=== PATIENT | female | born 1945 ===

== ENCOUNTER 2017-02-21 16:33 | Emergency (ER) | payer MEDICARE ==
[2017-02-21 16:33] VITALS: BMI 25.0
[2017-02-21 16:58] VITALS: BP 137/76; PULSE 75; RESP 20; TEMP 98.9; O2SAT 97
== END 2017-02-21 17:43 | disposition left against medical advice (07) ==
LOC: C.ER 16:33
DX: R10.9 Unspecified abdominal pain (principal); Z02.9 Encounter for administrative examinations, unspecified

== ENCOUNTER 2018-07-08 06:20 | Observation (INO) | payer MEDICARE ==
[2018-07-08 06:21] VITALS: BMI 20.5
[2018-07-08] MEDS ORDERED: Albuterol-Ipratrop 3 mg / 0.5 (3 ml) UD ONE (06:26)
[2018-07-08] MEDS ORDERED: Albuterol 0.083% Inhal Sol (2.5 mg/3 mL) UD IH STA ×3 (07:16→11:28)
[2018-07-08 07:29] LABS: BASO # 0.1 K/uL (0.0-0.2); BASO % 0.7 % (0.0-2.0); EOS # 0.2 K/uL (0.0-0.7); EOS % 2.5 % (0.0-4.0); HEMOGLOBIN 13.3 g/dL (11.0-16.0); LYMPH # 1.8 K/uL (1.0-4.3); LYMPH % 24.2 % (20.0-40.0); MEAN CELL VOLUME 86.7 fL (81.0-99.0); MEAN CORPUSCULAR HEMOGLOBIN 29.6 pg (27.0-31.0); MEAN CORPUSCULAR HGB CONC 34.1 g/dL (33.0-37.0); MEAN PLATELET VOLUME 7.7 fL (7.2-11.7); MONO # 0.9 K/uL (0.0-0.8); MONO % 11.5 % (0.0-10.0); NEUT # 4.6 K/uL (1.8-7.0); NEUT % 61.1 % (50.0-75.0); NRBC % 0.1 % (0.0-2.0); RBC 4.48 Mil/uL (3.80-5.20); RED CELL DISTRIBUTION WIDTH 14.3 % (11.5-14.5); WHITE BLOOD COUNT 7.5 K/uL (4.8-10.8)
[2018-07-08] MEDS ORDERED: Albuterol 0.083% Inhal Sol (2.5 mg/3 mL) UD ONE ×3 (07:37→12:09)
[2018-07-08 07:50] LABS: ALB/GLOB RATIO 1.1 (1.0-2.1); ALBUMIN 3.8 g/dL (3.5-5.0); ALT/SGPT 28 U/L (9-52); AST/SGOT 27 U/L (14-36); BLOOD UREA NITROGEN 22 mg/dL (7-17); CALCIUM 9.3 mg/dl (8.6-10.4); GFR NON-AFRICAN AMERICAN > 60
[2018-07-08 08:03] LABS: B-TYPE NATRIURETIC PEPTIDE 202 pg/mL (0-900); CK-MB 0.78 ng/mL (0.0-3.38)
--- NOTE | 2018-07-08 09:05 | C.PDOC ---
History Of Present Illness 73-year-old female, presents to the emergency department with complaints of a non-productive cough x4 days, that is associated with shortness of breath, wheezing and pleuritic pain. Patient denies fever, nausea/vomiting, diarrhea or abdominal pain. Time Seen by Provider: 07/08/18 07:07 Chief Complaint (Nursing): Cough, Cold, Congestion History Per: Patient History/Exam Limitations: no limitations Onset/Duration Of Symptoms: Days (4) Current Symptoms Are (Timing): Still Present Past Medical History Reviewed: Historical Data, Nursing Documentation, Vital Signs Vital Signs: Last Vital Signs Temp 98.5 F 07/08/18 06:30 Pulse 68 07/08/18 07:31 Resp 18 07/08/18 06:30 BP 125/56 L 07/08/18 07:31 Pulse Ox 20 L 07/08/18 07:31 - Medical History PMH: Anxiety, Arthritis, Bronchitis, COPD, Depression, Emphysema, Gastritis, HT N, Hypercholesterolemia, Osteoporosis Surgical History: Endoscopy - [facility] Procedures CATARAC PHACOEMULS/ASPIR (02/13/01) CORONAR ARTERIOGR-2 CATH (02/19/13) ESOPHAGOGASTRODUODENOSCOPY [EGD] W/CLOSED BIOPSY (07/19/14) INSERT LENS AT CATAR EXT (02/13/01) LEFT HEART CARDIAC CATH (02/19/13) LT HEART ANGIOCARDIOGRAM (02/19/13) NEBULIZER THERAPY (02/19/13) Family History: States: No Known Family Hx - Social History Hx Tobacco Use: No Hx Alcohol Use: No Hx Substance Use: No - Immunization History Hx Tetanus Toxoid Vaccination: No Hx Influenza Vaccination: No (not UTD) Hx Pneumococcal Vaccination: No (not UTD) Review Of Systems Constitutional: Negative for: Fever Cardiovascular: Negative for: Chest Pain, Palpitations, Edema Respiratory: Positive for: Cough, Shortness of Breath, Pleuritic Pain, Wheezing. Negative for: Sputum Gastrointestinal: Negative for: Nausea, Vomiting Musculoskeletal: Negative for: Back Pain Physical Exam - Physical Exam Appears: Non-toxic, No Acute Distress Skin: Warm, Dry, No Rash Head: Atraumatic Eye(s): bilateral: Normal Inspection Nose: Normal Oral Mucosa: Moist Lips: Normal Appearing Neck: Normal ROM Chest: Symmetrical Cardiovascular: Rhythm Regular, No Murmur Respiratory: Decreased Breath Sounds, Wheezing (mild expiratory) Gastrointestinal/Abdominal: Soft, No Tenderness Extremity: Normal ROM, No Pedal Edema Neurological/Psych: Oriented x3, Normal Speech ED Course And Treatment - Laboratory Results Result Diagrams: 07/08/18 07:25 07/08/18 07:25 ECG Rhythm: Sinus Rhythm ECG Interpretation: No Acute Changes Rate From EC O2 Sat by Pulse Oximetry: 20 Pulse Ox Interpretation: Normal (RA) Progress Note: Bloodwork, EKG, Chest X-Ray ordered and reviewed. Pt treated with Duoneb and Solumedrol Disposition - Disposition Referrals: Sanjiv David MD [Primary Care Provider] - - Scribe Statement The provider has reviewed the documentation as recorded by the Scribe (Vannesa Marion) Provider Attestation: All medical record entries made by the Scribe were at my direction and personally dictated by me. I have reviewed the chart and agree that the record accurately reflects my personal performance of the history, physical exam, medical decision making, and the department course for this patient. I have also personally directed, reviewed, and agree with the discharge instructions and disposition.
--- NOTE | 2018-07-08 11:09 | RAD ---
Date of service: 07/08/2018 PROCEDURE: CHEST RADIOGRAPH, 1 VIEW HISTORY: cough, sob COMPARISON: 06/09/2016 chest x-ray. CT chest report 02/19/2016 FINDINGS: LUNGS: Current lung volumes much less than before. Bibasilar atelectatic like changes present. Slightly greater opacity medial right lung base Nonspecific pulmonary nodules, 1 to 3 mm, mid and left upper lung zone-granulomas 1 consideration. That in the mid lung zone is not appreciated on prior studies. Summation of soft tissues, vessel on end, and/or intrinsic pathology related to a posterior left rib left 7th rib for example are some considerations No dense consolidation. PLEURA: No pneumothorax or pleural fluid seen. CARDIOVASCULAR: Top-normal heart size. Tortuous thoracic aorta. Pulmonary vasculature also appears slightly increased-in part likely secondary to crowding of low lung volume status There is atherosclerotic vascular aorta faint calcification suggested. OSSEOUS STRUCTURES: Bilateral shoulder arthrosis. VISUALIZED UPPER ABDOMEN: Normal. OTHER FINDINGS: None. IMPRESSION: Interval decreased lung volume-likely contributing to the relative prominence of the bronchovascular markings. Concomitant mild pulmonary venous congestion also a consideration. No dense consolidation. Bilateral medial mild atelectatic changes. Nonspecific mostly sub cm nodular opacities granulomatous change at least in part for those in the upper lung zones inferred. Additional pulmonary nodules also needed be considered. Note of a 4 mm nodule in the right lung base per the prior CT chest studies noted this is difficult to identify on this exam. There is a larger ill-defined nodular opacity in the medial right lung zone of unclear significance. Consider follow-up noncontrast CT chest imaging Other findings as above. Comments: Study marked for PA review .
--- NOTE | 2018-07-08 13:06 | CT ---
Date of service: 07/08/2018 CT chest without IV contrast Indication: DYSPNEA, LUNG NODULES Technique: Contiguous axial images were obtained through the chest without intravenous contrast enhancement. Sagittal and coronal reconstructions were generated and reviewed. This CT exam was performed using 1 or more of the following dose reduction techniques: Automated exposure control, adjustment of the MAA and/or kV according to patient size, and/or use of iterative reconstruction technique. Radiation dose (DLP): 202.04 MGy-cm. Comparison: Chest x-ray performed 07/08/28; CT of the chest with IV contrast performed 02/19/16 Findings: Visualized portions of the inferior thyroid gland appear unremarkable. The unenhanced mediastinal and hilar vascular structures appear grossly unremarkable. The heart appears within normal limits of size. Coronary artery calcifications. Atherosclerotic calcifications of the aorta present. Mild bibasilar atelectasis. No focal consolidation. No pleural effusion. No pneumothorax. No suspicious pulmonary nodules measuring greater than 5 mm. Small hiatal hernia/distal esophageal wall thickening. Limited visualization of the noncontrast upper abdomen appears grossly unremarkable. Scoliosis. Mild degenerative changes of the spine. Impression: Mild bibasilar atelectasis. Coronary artery calcifications. Small hiatal hernia/distal esophageal wall thickening.
[2018-07-08] MEDS ORDERED: guaiFENesin 200 mg/10 ml Syrup UD PO PRN (16:20)
[2018-07-08 16:26] VITALS: RESP 20
[2018-07-08] MEDS: Azithromycin 500 MG in Sodium Chloride 0.9% 250 ML IVPB SCH (17:17)
[2018-07-08] MEDS ORDERED: Dorzolamide 2% Opht Sol 10ml OD SCH (18:00)
[2018-07-08] MEDS ORDERED: Brimonidine 0.2% Opth Sol (5ml) OD SCH (18:00)
[2018-07-08] MEDS ORDERED: Latanoprost 2.5 ml Opht Soln OD SCH (18:00)
[2018-07-08] MEDS: Dorzolamide 2% Opht Sol 10ml OD SCH (19:17)
[2018-07-08] MEDS: Brimonidine 0.2% Opth Sol (5ml) OD SCH (19:18)
[2018-07-08] MEDS: Albuterol-Ipratrop 3 mg / 0.5 (3 ml) UD INH SCH (19:22)
[2018-07-08] MEDS: MethylPREDNISolone 40 mg Vial IVP SCH (21:47)
[2018-07-08] MEDS: Latanoprost 2.5 ml Opht Soln OD SCH (21:47)
--- NOTE | 2018-07-08 22:56 | CP.PCM.HP ---
Past Patient History - Infectious Disease Hx of Infectious Diseases: None - Tetanus Immunizations Tetanus Immunization: Unknown - Past Medical History & Family History Past Medical History?: Yes - Past Social History Smoking Status: Former Smoker - CARDIAC Hx Hypercholesterolemia: Yes Hx Hypertension: Yes - PULMONARY Hx Bronchitis: Yes Hx Chronic Obstructive Pulmonary Disease (COPD): Yes Hx Emphysema: Yes - NEUROLOGICAL Hx Neurological Disorder: No - HEENT Hx HEENT Problems: Yes Hx Glaucoma: Yes - RENAL Hx Chronic Kidney Disease: No - ENDOCRINE/METABOLIC Hx Endocrine Disorders: No - HEMATOLOGICAL/ONCOLOGICAL Hx Human Immunodeficiency Virus (HIV): No - INTEGUMENTARY Hx Dermatological Problems: No - MUSCULOSKELETAL/RHEUMATOLOGICAL Hx Arthritis: Yes Hx Osteoporosis: Yes - GASTROINTESTINAL Hx Gastritis: Yes - GENITOURINARY/GYNECOLOGICAL Hx Genitourinary Disorders: No - PSYCHIATRIC Hx Anxiety: Yes Hx Depression: Yes Hx Substance Use: No - SURGICAL HISTORY Hx Hysterectomy: Yes Other/Comment: Hernia surgery;glaucoma surgery L eye - ANESTHESIA Hx Anesthesia: Yes Hx Anesthesia Reactions: No Hx Malignant Hyperthermia: No Meds Allergies/Adverse Reactions: Allergies Allergy/AdvReac Type Severity Reaction Status Date / Time Penicillins Allergy Intermediate RASH Verified 07/08/18 06:26 moxifloxacin HCl AdvReac Intermediate RASH Verified 07/08/18 06:26 [From Avelox] Results - Vital Signs Recent Vital Signs: Last Vital Signs Temp 97.8 F 07/08/18 15:50 Pulse 68 07/08/18 19:23 Resp 20 07/08/18 15:50 BP 116/68 07/08/18 15:50 Pulse Ox 96 07/08/18 15:50 - Labs Result Diagrams: 07/08/18 07:25 07/08/18 07:25 Labs: Laboratory Results - last 24 hr 07/08/18 07/08/18 07/08/18 07:25 07:25 16:39 WBC 7.5 RBC 4.48 Hgb 13.3 Hct 38.8 MCV 86.7 MCH 29.6 MCHC 34.1 RDW 14.3 Plt Count 216 MPV 7.7 Neut % (Auto) 61.1 Lymph % (Auto) 24.2 [place] % (Auto) 11.5 H Eos % (Auto) 2.5 Baso % (Auto) 0.7 Neut # (Auto) 4.6 Lymph # (Auto) 1.8 [place] # (Auto) 0.9 H Eos # (Auto) 0.2 Baso # (Auto) 0.1 Sodium 141 Potassium 4.6 Chloride 102 Carbon Dioxide 29 Anion Gap 15 BUN 22 H Creatinine 0.8 Est GFR ( Amer) > 60 Est GFR (Non-Af Amer) > 60 POC Glucose (mg/dL) 125 H Random Glucose 98 Calcium 9.3 Total Bilirubin 0.5 AST 27 ALT 28 Alkaline Phosphatase 102 Total Creatine Kinase 73 CK-MB (Mass) 0.78 Troponin I 0.0140 NT-Pro-B Natriuret Pep 202 Total Protein 7.2 Albumin 3.8 Globulin 3.4 Albumin/Globulin Ratio 1.1
[2018-07-09] MEDS: Albuterol-Ipratrop 3 mg / 0.5 (3 ml) UD INH SCH ×4 (01:29→20:15)
[2018-07-09] MEDS: MethylPREDNISolone 40 mg Vial IVP SCH ×3 (05:44→21:35)
[2018-07-09] MEDS: guaiFENesin 200 mg/10 ml Syrup UD PO SCH ×5 (07:33→21:34)
--- NOTE | 2018-07-09 08:27 | HP ---
DATE OF SERVICE: 07/08/2018 CHIEF COMPLAINT: Shortness of breath and cough for the last four days. HISTORY OF PRESENT ILLNESS: This is a 73-year-old female with history of bronchial asthma. She came in because of cough, congestion, shortness of breath, cold, and wheezing for four days. Along with the wheezing, she is having chest congestion, chest pain upon coughing, generalized weakness, tiredness, anorexia, malaise, and fatigue. She has white sputum production. She has chills. She denies any rigors. She denies any history of hemoptysis. She denies any nausea or vomiting. She denies any history of polyuria, polydipsia, and polyphagia. She denies any history of hematuria or pyuria. She has nasal congestion. She denies any sneezing. ALLERGIES: TO PENICILLIN. PAST MEDICAL HISTORY: Bronchial asthma and allergic rhinitis. SOCIAL HISTORY: Nonsmoker, non-EtOH user. CURRENT MEDICATIONS: At home, she is on Timoptic eyedrops, Alphagan eyedrops, Ventolin HFA, and Travatan. FAMILY HISTORY: Noncontributory. PHYSICAL EXAMINATION: GENERAL: An elderly female in [id number] respiratory distress. VITAL SIGNS: Blood pressure 116/68, pulse 67, respiratory rate 20, and temperature 97.8. SKIN: Senile turgor. No bruises. No purpura. No petechia. No ecchymosis. HEENT: Atraumatic, normocephalic. Negative pallor. Negative jaundice. Extraocular movements are intact. NECK: Supple. Using accessory muscles of respiration. No JVD. No lymph node. No thyromegaly. No carotid bruits. CHEST WALL: Bilateral symmetrical expansion. LUNGS: Bilaterally decreased air entry. Positive rhonchi. CARDIOVASCULAR SYSTEM: PMI not localized. S1 and S2 regular. No heave, no thrills. ABDOMEN: Soft and nontender. Bowel sounds are positive. RECTAL: Negative. GENITALIA: Normal. EXTREMITIES: No clubbing, cyanosis, or edema. CENTRAL NERVOUS SYSTEM: Awake, alert and oriented x3 at the time of the assessment. ASSESSMENT: 1. Acute exacerbation of bronchial asthma. 2. Urinary tract infection. 3. Glaucoma. PLAN: Medical management, monitor the patient. Michael Fontaine MD
[2018-07-09] MEDS: Brimonidine 0.2% Opth Sol (5ml) OD SCH ×2 (09:49→17:30)
[2018-07-09] MEDS: Dorzolamide 2% Opht Sol 10ml OD SCH ×2 (09:52→17:31)
[2018-07-09] MEDS: Azithromycin 500 MG in Sodium Chloride 0.9% 250 ML IVPB SCH (09:58)
[2018-07-09] MEDS ORDERED: Influenza Vaccine 60 MCG/0.5 ML SYR (3 yr & up) IM ONE (10:00)
[2018-07-09] MEDS ORDERED: Pneumococcal 23-Valent Vaccine IM ONE (10:00)
[2018-07-09] MEDS: Enoxaparin 40 mg Syringe SC SCH (10:34)
--- NOTE | 2018-07-09 16:13 | CP.PCM.CON ---
History of Present Illness - History of Present Illness History of Present Illness: Patient is a 73 y/o female with PMHx of asthma and emphysema, who presented to the ED on 07/08/18 with complaint of non-productive cough x2 days, shortness of breath, wheezing, and pleuritic chest pain. She states the chest p ain is more of a tightness/congestion, which worsens with coughing. Patient states she has experienced these symptoms before, for which she has been followed by a enterprise security architect in the past. She states using her nebulizer machine up to 4x/day at home makes her symptoms better and exerting herself make it worse. Patient has used Spiriva before, but stopped using it awhile ago due to personal issues. Currently, pt. complains of non-productive cough, chest tightness, shortness of breath, and weakness. Denies fever, hemoptysis, n/v. Of note, patient's spouse of 45 years this week, and his burial is this Saturday (07/11/18); she seems very distressed/depressed. PMHx: asthma (since young), emphysema, gastritis, hypercholesteremia PSHx: glaucoma, hysterectomy FHx: NC Allergies: PCN (hives) Meds: nebullizer machine (4x/day at home), eye drops, Spiriva in the past Social: denies smoking, alcohol, and drug use; lives alone (used to live with , who recently passed); unemployed CXR (07/08): -Interval decreased lung volume-likely contributing to the relative prominence o f the bronchovascular markings. Concomitant mild pulmonary venous congestion also a consideration. -No dense consolidation; bilateral medial mild atelectatic changes -Nonspecific mostly sub cm nodular opacities granulomatous change at leas tin part for those in the upper lung zones inferred; additional pulmonary nodules also needed be considered; note of a 4mm nodule in right lung base per the prior CT chest studies noted this is difficult to identify on this exam; there is a larger ill-defined nodular opacity in the medial right lung zone of unclear significance; consider follow-up noncontrast CT chest imaging. CT chest w/o contrast (07/08): -Mild bibasilar atelectasis; no focal consolidation; no pleural effusion; no pneumothorax; no suspicious pulmonary nodules measuring greater than 5mm. Review of Systems - Review of Systems All systems: reviewed and no additional remarkable complaints except (shortness of breath) Past Patient History - Infectious Disease Hx of Infectious Diseases: None - Tetanus Immunizations Tetanus Immunization: Unknown - Past Medical History & Family History Past Medical History?: Yes - Past Social History Smoking Status: Former Smoker - CARDIAC Hx Hypercholesterolemia: Yes Hx Hypertension: Yes - PULMONARY Hx Bronchitis: Yes Hx Chronic Obstructive Pulmonary Disease (COPD): Yes Hx Emphysema: Yes - NEUROLOGICAL Hx Neurological Disorder: No - HEENT Hx HEENT Problems: Yes Hx Glaucoma: Yes - RENAL Hx Chronic Kidney Disease: No - ENDOCRINE/METABOLIC Hx Endocrine Disorders: No - HEMATOLOGICAL/ONCOLOGICAL Hx Human Immunodeficiency Virus (HIV): No - INTEGUMENTARY Hx Dermatological Problems: No - MUSCULOSKELETAL/RHEUMATOLOGICAL Hx Arthritis: Yes Hx Osteoporosis: Yes - GASTROINTESTINAL Hx Gastritis: Yes - GENITOURINARY/GYNECOLOGICAL Hx Genitourinary Disorders: No - PSYCHIATRIC Hx Anxiety: Yes Hx Depression: Yes Hx Substance Use: No - SURGICAL HISTORY Hx Hysterectomy: Yes Other/Comment: Hernia surgery;glaucoma surgery L eye - ANESTHESIA Hx Anesthesia: Yes Hx Anesthesia Reactions: No Hx Malignant Hyperthermia: No Meds Allergies/Adverse Reactions: Allergies Allergy/AdvReac Type Severity Reaction Status Date / Time Penicillins Allergy Intermediate RASH Verified 07/08/18 06:26 moxifloxacin HCl AdvReac Intermediate RASH Verified 07/08/18 06:26 [From Avelox] - Medications Medications: Current Medications Acetaminophen (Tylenol 325mg Tab) 650 mg PO Q6 PRN PRN Reason: Headache Albuterol/Ipratropium (Duoneb 3 Mg/0.5 Mg (3 Ml) Ud) 3 ml INH RQ6 [facility] Last Admin: 07/09/18 13:25 Dose: Not Given Brimonidine Tartrate (Alphagan 0.2% Opht) 0.05 ml OD BID [facility] Last Admin: 07/09/18 09:49 Dose: 1 drop Dorzolamide HCl (Trusopt) 0.05 ml OD BID [facility] Last Admin: 07/09/18 09:52 Dose: 1 drop Enoxaparin Sodium (Lovenox) 40 mg SC DAILY [facility] Last Admin: 07/09/18 10:34 Dose: 40 mg Guaifenesin (Robitussin) 200 mg PO Q4H [facility] Last Admin: 07/09/18 13:46 Dose: 200 mg Azithromycin 500 mg/ Sodium (Chloride) 250 mls @ 250 mls/hr IVPB DAILY [facility]; Protocol Last Admin: 07/09/18 09:58 Dose: 250 mls/hr Latanoprost (Xalatan Opht) 0.05 ml OD DAILY@2200 [facility] Last Admin: 07/08/18 21:47 Dose: 0.05 ml Methylprednisolone (Solu-Medrol) 40 mg IVP Q12 [facility] Pantoprazole Sodium (Protonix Inj) 40 mg IVP DAILY [facility] Last Admin: 07/09/18 09:52 Dose: 40 mg Physical Exam - Head Exam Head Exam: ATRAUMATIC, NORMOCEPHALIC - ENT Exam ENT Exam: Mucous Membranes Moist - Neck Exam Neck exam: Positive for: Normal Inspection - Respiratory Exam Respiratory Exam: Decreased Breath Sounds - Cardiovascular Exam Cardiovascular Exam: REGULAR RHYTHM - GI/Abdominal Exam GI & Abdominal Exam: Normal Bowel Sounds - Extremities Exam Extremities exam: Positive for: normal inspection Results - Vital Signs Recent Vital Signs: Last Vital Signs Temp 98.1 F 07/09/18 08:00 Pulse 68 07/09/18 15:50 Resp 20 07/09/18 08:00 BP 108/59 L 07/09/18 08:00 Pulse Ox 96 07/09/18 14:50 - Labs Result Diagrams: 07/08/18 07:25 07/08/18 07:25 Labs: Laboratory Results - last 24 hr 07/08/18 16:39 POC Glucose (mg/dL) 125 H Assessment & Plan (1) COPD exacerbation Status: Acute Comment: continue steroids. Nebulizer treatment. IV antibiotics. Antidepressant
--- NOTE | 2018-07-09 19:49 | CARD ---
APPROVED REPORT Date of service: 07/08/2018 EKG Measurement Heart [id number] <Conclusion> Normal sinus rhythm Possible Left atrial enlargement Borderline ECG
[2018-07-09] MEDS: Latanoprost 2.5 ml Opht Soln OD SCH (21:34)
--- NOTE | 2018-07-09 21:47 | CP.PCM.PN ---
Subjective - Subjective Subjective: dictated Objective - Vital Signs/Intake and Output Vital Signs (last 24 hours): Temp Pulse Resp BP Pulse Ox 98.1 F 68 20 111/66 95 07/09/18 15:00 07/09/18 15:50 07/09/18 15:00 07/09/18 15:00 07/09/18 19:45 - Medications Medications: Current Medications Acetaminophen (Tylenol 325mg Tab) 650 mg PO Q6 PRN PRN Reason: Headache Albuterol/Ipratropium (Duoneb 3 Mg/0.5 Mg (3 Ml) Ud) 3 ml INH RQ6 [facility] Last Admin: 07/09/18 20:15 Dose: 3 ml Brimonidine Tartrate (Alphagan 0.2% Opht) 0.05 ml OD BID [facility] Last Admin: 07/09/18 17:30 Dose: 1 drop Dorzolamide HCl (Trusopt) 0.05 ml OD BID [facility] Last Admin: 07/09/18 17:31 Dose: 1 drop Enoxaparin Sodium (Lovenox) 40 mg SC DAILY [facility] Last Admin: 07/09/18 10:34 Dose: 40 mg Guaifenesin (Robitussin) 200 mg PO Q4H [facility] Last Admin: 07/09/18 21:34 Dose: 200 mg Azithromycin 500 mg/ Sodium (Chloride) 250 mls @ 250 mls/hr IVPB DAILY [facility]; Protocol Last Admin: 07/09/18 09:58 Dose: 250 mls/hr Latanoprost (Xalatan Opht) 0.05 ml OD DAILY@2200 [facility] Last Admin: 07/09/18 21:34 Dose: 0.05 ml Methylprednisolone (Solu-Medrol) 40 mg IVP Q12 [facility] Last Admin: 07/09/18 21:35 Dose: 40 mg Pantoprazole Sodium (Protonix Inj) 40 mg IVP DAILY [facility] Last Admin: 07/09/18 09:52 Dose: 40 mg - Labs Labs: 07/08/18 07:25 07/08/18 07:25
[2018-07-10 01:21] VITALS: PULSE 74
[2018-07-10] MEDS: Albuterol-Ipratrop 3 mg / 0.5 (3 ml) UD INH SCH ×2 (01:48→08:04)
[2018-07-10] MEDS: guaiFENesin 200 mg/10 ml Syrup UD PO SCH ×3 (02:40→09:50)
[2018-07-10 07:17] LABS: ALB/GLOB RATIO 1.1 (1.0-2.1); ALBUMIN 3.7 g/dL (3.5-5.0); ALT/SGPT 30 U/L (9-52); AST/SGOT 24 U/L (14-36); BLOOD UREA NITROGEN 25 mg/dL (7-17); GFR NON-AFRICAN AMERICAN > 60
[2018-07-10 07:19] LABS: BASO # 0.1 K/uL (0.0-0.2); BASO % 0.4 % (0.0-2.0); HEMOGLOBIN 13.1 g/dL (11.0-16.0); LYMPH # 1.6 K/uL (1.0-4.3); LYMPH % 8.4 % (20.0-40.0); MEAN CELL VOLUME 86.4 fL (81.0-99.0); MEAN CORPUSCULAR HEMOGLOBIN 29.8 pg (27.0-31.0); MEAN CORPUSCULAR HGB CONC 34.4 g/dL (33.0-37.0); MEAN PLATELET VOLUME 8.8 fL (7.2-11.7); MONO # 0.8 K/uL (0.0-0.8); NEUT # 16.6 K/uL (1.8-7.0); NEUT % 87.2 % (50.0-75.0); PLATELET COUNT 259 K/uL (130-400); RBC 4.42 Mil/uL (3.80-5.20); RED CELL DISTRIBUTION WIDTH 14.2 % (11.5-14.5); WHITE BLOOD COUNT 19.1 K/uL (4.8-10.8)
[2018-07-10 08:35] VITALS: BP 117/63; TEMP 97.4; O2SAT 96
--- NOTE | 2018-07-10 08:46 | PN ---
DATE: 07/09/2018 SUBJECTIVE: Rosalva Guerrero is less short of breath, less cough, less wheezing. She is afebrile. No nausea or vomiting. She is coughing. She is wheezing. Overall, she feels better. PHYSICAL EXAMINATION: VITAL SIGNS: Blood pressure 111/66, pulse 68, respiratory rate 20, temperature 98.1. LUNGS: Decreased air entry. Positive rhonchi. CARDIOVASCULAR SYSTEM: S1 and S2, regular. ABDOMEN: Soft. Nontender. Bowel sounds are positive. ASSESSMENT: 1. Exacerbation of bronchial asthma. 2. Allergic rhinitis. 3. Dehydration. PLAN: Continue current medications, steroids. Monitor the patient. Michael Fontaine MD
[2018-07-10 09:02] LABS: BANDS 1 % (0-2); LYMPHOCYTE 7 % (20-40); MONOCYTE 2 % (0-10); NEUTROPHIL 90 % (50-75); PLATELET ESTIMATE NORMAL (NORMAL); TOTAL CELLS COUNTED 100
[2018-07-10] MEDS: Brimonidine 0.2% Opth Sol (5ml) OD SCH (09:47)
[2018-07-10] MEDS: Enoxaparin 40 mg Syringe SC SCH (09:49)
[2018-07-10] MEDS: Dorzolamide 2% Opht Sol 10ml OD SCH (09:51)
[2018-07-10] MEDS: Azithromycin 500 MG in Sodium Chloride 0.9% 250 ML IVPB SCH ×2 (09:52→10:14)
[2018-07-10] MEDS: MethylPREDNISolone 40 mg Vial IVP SCH (10:13)
--- NOTE | 2018-07-10 10:34 | CP.PCM.PN ---
Subjective - Date & Time of Evaluation Date of Evaluation: 07/10/18 Time of Evaluation: 10:25 - Subjective Subjective: Patient seen today, sob and cough improved,denies any chest pain , palpitations, dizziness a febrile vss and labs - reviewed Objective - Vital Signs/Intake and Output Vital Signs (last 24 hours): Temp Pulse Resp BP Pulse Ox 97.4 F L 74 20 117/63 96 07/10/18 07:30 07/10/18 07:30 07/10/18 07:30 07/10/18 07:30 07/10/18 08:00 Intake and Output: 07/10/18 07/10/18 06:59 18:59 Intake Total 400 Balance 400 - Medications Medications: Current Medications Acetaminophen (Tylenol 325mg Tab) 650 mg PO Q6 PRN PRN Reason: Headache Albuterol/Ipratropium (Duoneb 3 Mg/0.5 Mg (3 Ml) Ud) 3 ml INH RQ6 [facility] Last Admin: 07/10/18 08:04 Dose: 3 ml Brimonidine Tartrate (Alphagan 0.2% Opht) 0.05 ml OD BID [facility] Last Admin: 07/10/18 09:47 Dose: 1 drop Dorzolamide HCl (Trusopt) 0.05 ml OD BID [facility] Last Admin: 07/10/18 09:51 Dose: 1 drop Enoxaparin Sodium (Lovenox) 40 mg SC DAILY [facility] Last Admin: 07/10/18 09:49 Dose: 40 mg Guaifenesin (Robitussin) 200 mg PO Q4H [facility] Last Admin: 07/10/18 09:50 Dose: 200 mg Azithromycin 500 mg/ Sodium (Chloride) 250 mls @ 250 mls/hr IVPB DAILY [facility]; Protocol Last Admin: 07/10/18 10:14 Dose: Not Given Latanoprost (Xalatan Opht) 0.05 ml OD DAILY@2200 [facility] Last Admin: 07/09/18 21:34 Dose: 0.05 ml Methylprednisolone (Solu-Medrol) 40 mg IVP Q12 [facility] Last Admin: 07/10/18 10:13 Dose: Not Given Pantoprazole Sodium (Protonix Inj) 40 mg IVP DAILY [facility] Last Admin: 07/10/18 09:48 Dose: 40 mg - Labs Labs: 07/10/18 06:49 07/10/18 06:49 - Constitutional Appears: Well, Non-toxic, No Acute Distress - Respiratory Exam Respiratory Exam: Rhonchi, NORMAL BREATHING PATTERN - Cardiovascular Exam Cardiovascular Exam: REGULAR RHYTHM, +S1, +S2 Assessment and Plan - Assessment and Plan (Free Text) Assessment: A/P 73-year-old female, with pmhx of asthma presented to ED with non-productive cough x4 days, associated with shortness of breath, and admitted with exc,COPD patient clinically improved with steroids D/w Dr. Fontaine, cleared for discharge home today and f/u [facility] Dr. Feliz office in 1 week Discharge plan discussed with patient patient instructed to returns to ED if symptoms returns or worsening of symptoms
--- NOTE | 2018-07-10 17:18 | CP.PCM.PN ---
Subjective - Date & Time of Evaluation Date of Evaluation: 07/10/18 Time of Evaluation: 09:45 - Subjective Subjective: Patient was seen and examined at bedside, sitting comfortably. Afebrile and in no acute distress. Patient states SOB improving with nebulizer treatment and cough improving with Robitussin. Denies chest pain. She is being discharged today with prescriptions of her medications. Objective - Vital Signs/Intake and Output Vital Signs (last 24 hours): Temp Pulse Resp BP Pulse Ox 97.4 F L 74 20 117/63 96 07/10/18 07:30 07/10/18 07:30 07/10/18 07:30 07/10/18 07:30 07/10/18 08:00 Intake and Output: 07/10/18 07/10/18 06:59 18:59 Intake Total 400 Balance 400 - Labs Labs: 07/10/18 06:49 07/10/18 06:49 Assessment and Plan (1) COPD exacerbation Status: Acute
--- NOTE | 2018-07-10 21:59 | CP.PCM.DIS ---
Provider - Provider Date of Admission: 07/08/18 11:30 Attending physician: Michael Fontaine MD Hospital Course - Lab Results Lab Results: Most Recent Lab Values WBC 19.1 K/uL (4.8-10.8) H D 07/10/18 06:49 RBC 4.42 Mil/uL (3.80-5.20) 07/10/18 06:49 Hgb 13.1 g/dL (11.0-16.0) 07/10/18 06:49 Hct 38.2 % (34.0-47.0) 07/10/18 06:49 MCV 86.4 fL (81.0-99.0) 07/10/18 06:49 MCH 29.8 pg (27.0-31.0) 07/10/18 06:49 MCHC 34.4 g/dL (33.0-37.0) 07/10/18 06:49 RDW 14.2 % (11.5-14.5) 07/10/18 06:49 Plt Count 259 K/uL (130-400) 07/10/18 06:49 MPV 8.8 fL (7.2-11.7) 07/10/18 06:49 Neut % (Auto) 87.2 % (50.0-75.0) H 07/10/18 06:49 Lymph % (Auto) 8.4 % (20.0-40.0) L 07/10/18 06:49 [place] % (Auto) 4.0 % (0.0-10.0) 07/10/18 06:49 Eos % (Auto) 0.0 % (0.0-4.0) 07/10/18 06:49 Baso % (Auto) 0.4 % (0.0-2.0) 07/10/18 06:49 Neut # (Auto) 16.6 K/uL (1.8-7.0) H 07/10/18 06:49 Lymph # (Auto) 1.6 K/uL (1.0-4.3) 07/10/18 06:49 [place] # (Auto) 0.8 K/uL (0.0-0.8) 07/10/18 06:49 Eos # (Auto) 0.0 K/uL (0.0-0.7) 07/10/18 06:49 Baso # (Auto) 0.1 K/uL (0.0-0.2) 07/10/18 06:49 Neutrophils % (Manual) 90 % (50-75) H 07/10/18 06:49 Band Neutrophils % 1 % (0-2) 07/10/18 06:49 Lymphocytes % (Manual) 7 % (20-40) L 07/10/18 06:49 Monocytes % (Manual) 2 % (0-10) 07/10/18 06:49 Platelet Estimate Normal (NORMAL) 07/10/18 06:49 Sodium 143 mmol/L (132-148) 07/10/18 06:49 Potassium 4.2 mmol/L (3.6-5.2) 07/10/18 06:49 Chloride 106 mmol/L (98-107) 07/10/18 06:49 Carbon Dioxide 25 mmol/L (22-30) 07/10/18 06:49 Anion Gap 15 (10-20) 07/10/18 06:49 BUN 25 mg/dL (7-17) H 07/10/18 06:49 Creatinine 0.7 mg/dL (0.7-1.2) 07/10/18 06:49 Est GFR ( Amer) > 60 07/10/18 06:49 Est GFR (Non-Af Amer) > 60 07/10/18 06:49 POC Glucose (mg/dL) 125 mg/dL (65-110) H 07/08/18 16:39 Random Glucose 99 mg/dL (65-105) 07/10/18 06:49 Calcium 9.0 mg/dl (8.6-10.4) 07/10/18 06:49 Total Bilirubin 0.3 mg/dL (0.2-1.3) 07/10/18 06:49 AST 24 U/L (14-36) 07/10/18 06:49 ALT 30 U/L (9-52) 07/10/18 06:49 Alkaline Phosphatase 97 U/L (38-126) 07/10/18 06:49 Total Creatine Kinase 73 U/L (30-135) 07/08/18 07:25 CK-MB (Mass) 0.78 ng/mL (0.0-3.38) 07/08/18 07:25 Troponin I 0.0140 ng/mL (0.00-0.120) 07/08/18 07:25 NT-Pro-B Natriuret Pep 202 pg/mL (0-900) 07/08/18 07:25 Total Protein 6.9 g/dL (6.3-8.3) 07/10/18 06:49 Albumin 3.7 g/dL (3.5-5.0) 07/10/18 06:49 Globulin 3.2 gm/dL (2.2-3.9) 07/10/18 06:49 Albumin/Globulin Ratio 1.1 (1.0-2.1) 07/10/18 06:49 Discharge Exam - Head Exam Head Exam: ATRAUMATIC, NORMOCEPHALIC Discharge Plan - Discharge Medications Prescriptions: Albuterol/Ipratropium [Duoneb 3 mg/0.5 mg (3 ml) UD] 3 ml INH RQ6 30 Days neb predniSONE [Prednisone] 30 mg PO DAILY #18 tab Pantoprazole [Protonix] 40 mg PO DAILY #15 ect Albuterol HFA [Ventolin HFA 90 mcg/actuation (8 g)] 1 puff IH PRN #1 puff Azithromycin [Zithromax] 500 mg PO DAILY #3 tab - Follow Up Plan Condition: GOOD Disposition: HOME/ ROUTINE Instructions: COPD Including Emphysema (DC) Additional Instructions: Please f/u with Dr. Krishnamurthy office in 1 week continue medication as per med. rec. Referrals: Sanjiv David MD [Staff Provider] -
--- NOTE | 2018-07-11 20:53 | DS ---
ADMITTING DIAGNOSIS: Chronic obstructive pulmonary disease. DISCHARGE DIAGNOSES: Exacerbation of chronic obstructive pulmonary disease, tracheobronchitis. HOSPITAL COURSE: This is a 73-year-old female with history of COPD, who came in because of cough, congestion, shortness of breath and wheezing. CT of the chest was negative for infiltrate. The patient did well with Solu-Medrol, oxygen, and nebulizer treatment. The patient is being discharged with outpatient followup. CONDITION UPON DISCHARGE: Stable. VITAL SIGNS UPON DISCHARGE: Blood pressure 117/63, pulse 74, respiratory rate 20, temperature 97.4. DISCHARGE LABORATORY DATA: WBC 19.1, hemoglobin is 13.1, hematocrit 38.2, platelets 259. Sodium 143, potassium 4.2, chloride 100, bicarbonate 25, BUN 25, creatinine 0.7. LFTs benign. The patient is stable upon discharge. She will be followed up as outpatient. Michael Fontaine MD
== END 2018-07-10 12:23 | disposition home or self-care (01) ==
LOC: C.ER 06:20 → SUPCPDRO 06:20 → C.9E 11:30 → C.5S 14:45
PROVIDERS: ADMIT Internal Medicine; ATTEND Internal Medicine
DX: J44.1 Chronic obstructive pulmonary disease with (acute) exacerbation (principal); E86.0 Dehydration; H40.9 Unspecified glaucoma; I10 Essential (primary) hypertension; J45.901 Unspecified asthma with (acute) exacerbation; J98.11 Atelectasis; N39.0 Urinary tract infection, site not specified; Z87.891 Personal history of nicotine dependence
CPT/HCPCS: 36415; 71045; 71250; 80053; 82550; 82553; 82948; 83880; 84484; 85025; 93005; 94640; 96374; 97116; 97162; 99285; C9113; G0378; G8978; G8979; J0456; J1650; J2920; J2930; J7050

== ENCOUNTER 2018-08-26 11:19 | Inpatient (IN) | payer MEDICARE ==
[2018-08-26 11:28] VITALS: BMI 25.0
[2018-08-26] MEDS ORDERED: Albuterol-Ipratrop 3 mg / 0.5 (3 ml) UD ONE ×2 (12:24→13:00)
--- NOTE | 2018-08-26 12:25 | C.PDOC ---
History Of Present Illness 73 year old female presents to the ED for evaluation of cough which began around 2 weeks ago and shortness of breath which has been worsening since last night. Patient denies fever, headache, nausea, vomiting, and abdominal pain at this time. Time Seen by Provider: 08/26/18 12:07 Chief Complaint (Nursing): Shortness Of Breath History Per: Patient History/Exam Limitations: no limitations Onset/Duration Of Symptoms: Other (cough for two weeks, shortness of breath since last night ) Current Symptoms Are (Timing): Still Present Current Respiratory Medications: See Home Med List Associated Symptoms: denies: Fever, Chills Additional History Per: Patient Past Medical History Reviewed: Historical Data, Nursing Documentation, Vital Signs Vital Signs: Last Vital Signs Temp 97.8 F 08/26/18 11:28 Pulse 62 08/26/18 11:28 Resp 18 08/26/18 11:28 BP 100/64 08/26/18 11:28 Pulse Ox 98 08/26/18 11:28 - Medical History PMH: Anxiety, Arthritis, Bronchitis, COPD, Depression, Emphysema, Gastritis, HTN, Hypercholesterolemia, Osteoporosis Surgical History: Endoscopy - [facility] CATARAC PHACOEMULS/ASPIR (02/13/01) CORONAR ARTERIOGR-2 CATH (02/19/13) ESOPHAGOGASTRODUODENOSCOPY [EGD] W/CLOSED BIOPSY (07/19/14) INSERT LENS AT CATAR EXT (02/13/01) LEFT HEART CARDIAC CATH (02/19/13) LT HEART ANGIOCARDIOGRAM (02/19/13) NEBULIZER THERAPY (02/19/13) Family History: States: Unknown Family Hx - Social History Hx Tobacco Use: No Hx Alcohol Use: No Hx Substance Use: No - Immunization History Hx Tetanus Toxoid Vaccination: No Hx Influenza Vaccination: No Hx Pneumococcal Vaccination: No Review Of Systems Constitutional: Negative for: Fever, Chills Respiratory: Positive for: Cough, Shortness of Breath Gastrointestinal: Negative for: Nausea, Vomiting, Abdominal Pain Physical Exam - Physical Exam Appears: Non-toxic, Other (in mild respiratory distress ) Skin: Normal Color, Warm, Dry Head: Atraumatic, Normacephalic Eye(s): bilateral: Normal Inspection, EOMI Oral Mucosa: Moist Neck: Supple Chest: Symmetrical, No Deformity, No Tenderness Cardiovascular: Rhythm Regular, No Murmur Respiratory: No Rales, No Rhonchi, Wheezing (diffuse ) Extremity: Normal ROM Neurological/Psych: Oriented x3, Normal Speech, Normal Cognition ED Course And Treatment - Laboratory Results Result Diagrams: 08/26/18 12:23 08/26/18 12:23 O2 Sat by Pulse Oximetry: 98 (on RA) Pulse Ox Interpretation: Normal Medical Decision Making Medical Decision Making: Impression: 73 year old female with shortness of breath Plan: * bloodwork * CXR * EKG * Albuterol INH * Solu-Medrol IVP Progress: Bloodwork, CXR, EKG ordered and reviewed. Albuterol INH and Solu-Medrol IVP administered. Patient remained unchanged and reports feeling the same. On re-exam lungs still mild wheezes. Family member at bedside states she usually needs admission when she gets this ill. No infiltrate on CXR. Contact DR Fontaine who admits for DR David for admission. He accepted patient onto his service Disposition Counseled Patient/Family Regarding: Diagnosis, Need For Followup - Disposition Disposition: HOSPITALIZED Disposition Time: 14:15 Condition: STABLE - POA Present On Arrival: None - Clinical Impression Clinical Impression: COPD exacerbation - PA / [employer] DEVELOPMENT MANAGER / Resident Statement MD/DO has reviewed & agrees with the documentation as recorded. - Scribe Statement The provider has reviewed the documentation as recorded by the Scribe (Lizzy Carrera) All medical record entries made by the Scribe were at my direction and personally dictated by me. I have reviewed the chart and agree that the record accurately reflects my personal performance of the history, physical exam, medical decision making, and the department course for this patient. I have also personally directed, reviewed, and agree with the discharge instructions and disposition. Decision To Admit - Pt Status Changed To: Hospital Disposition Of: Observation - . Bed Request Type: Regular Admitting Physician: Michael Fontaine Patient Diagnosis: COPD exacerbation
[2018-08-26 12:29] LABS: BASO # 0.1 K/uL (0.0-0.2); BASO % 0.8 % (0.0-2.0); EOS # 0.1 K/uL (0.0-0.7); EOS % 1.4 % (0.0-4.0); HEMOGLOBIN 13.9 g/dL (11.0-16.0); LYMPH # 2.3 K/uL (1.0-4.3); LYMPH % 25.7 % (20.0-40.0); MEAN CORPUSCULAR HEMOGLOBIN 29.9 pg (27.0-31.0); MEAN CORPUSCULAR HGB CONC 33.8 g/dL (33.0-37.0); MEAN PLATELET VOLUME 8.2 fL (7.2-11.7); MONO % 11.1 % (0.0-10.0); NEUT # 5.3 K/uL (1.8-7.0); NRBC % 0.1 % (0.0-2.0); RBC 4.65 Mil/uL (3.80-5.20); RED CELL DISTRIBUTION WIDTH 13.8 % (11.5-14.5)
[2018-08-26 12:30] LABS: MEAN CELL VOLUME 88.6 fL (81.0-99.0); WHITE BLOOD COUNT 8.8 K/uL (4.8-10.8)
[2018-08-26] MEDS: Albuterol-Ipratrop 3 mg / 0.5 (3 ml) UD IH SCH ×3 (12:33→13:02)
[2018-08-26 12:49] LABS: ALB/GLOB RATIO 1.1 (1.0-2.1); ALT/SGPT 22 U/L (9-52); AST/SGOT 28 U/L (14-36); BLOOD UREA NITROGEN 21 mg/dL (7-17); CALCIUM 9.3 mg/dl (8.6-10.4); GFR NON-AFRICAN AMERICAN > 60
[2018-08-26 12:57] LABS: B-TYPE NATRIURETIC PEPTIDE 145 pg/mL (0-900)
[2018-08-26 13:41] LABS: INR 1.1; PROTHROMBIN TIME 11.9 SECONDS (9.7-12.2)
--- NOTE | 2018-08-26 14:04 | RAD ---
Date of service: 08/26/2018 PROCEDURE: CHEST RADIOGRAPH, 1 VIEW HISTORY: SOB COMPARISON: 07/08/2018 FINDINGS: LUNGS: Current study is rotated towards the right. No interval consolidation or mass noted. Prior equivocal granulomatous like changes are less pronounced on this exam. Currently no atelectasis is appreciated. PLEURA: No pneumothorax or pleural fluid seen. CARDIOVASCULAR: There is presence of aortic atherosclerotic calcification on x-ray. Marked tortuosity of the thoracic aorta accentuated with the current positioning as well. Heart size probably top-normal. OSSEOUS STRUCTURES: Bilateral shoulder arthrosis. Punctate 1 mm calcification ossification borders the left humeral head-consistent with rotator calcific tendinopathy and/or calcific bursitis. Thoracic spondylosis. VISUALIZED UPPER ABDOMEN: Normal. OTHER FINDINGS: None. IMPRESSION: No interval pathology noted.
[2018-08-26] MEDS ORDERED: Albuterol 0.083% Inhal Sol (2.5 mg/3 mL) UD INH PRN (15:17)
[2018-08-26] MEDS ORDERED: Albuterol-Ipratrop 3 mg / 0.5 (3 ml) UD INH STA (15:17)
[2018-08-26] MEDS ORDERED: Azithromycin 500 MG in Sodium Chloride 0.9% 250 ML IVPB SCH (17:00)
[2018-08-26 17:14] VITALS: RESP 20
[2018-08-26] MEDS: guaiFENesin 200 mg/10 ml Syrup UD PO SCH ×2 (17:21→21:56)
[2018-08-26] MEDS: Azithromycin 500 MG in Sodium Chloride 0.9% 250 ML IVPB SCH (18:43)
--- NOTE | 2018-08-26 19:05 | CP.PCM.CON ---
History of Present Illness - History of Present Illness History of Present Illness: reason for consultation: shortness of breath Patient is a 73 y/o female with PMHx of asthma and emphysema, who presented to the ED with complaint of non-productive cough x2 days, shortness of breath, wheezing. She states the chest pain is more of a tightness/congestion, which worsens with coughing. Patient states she has experienced these symptoms before, for which she has been followed by a mexican food maker hand in the past. Daysi ziegler pt. complains of non-productive cough, chest tightness, shortness of breath, and weakness. Denies fever, hemoptysis, n/v. PMHx: asthma (since young), emphysema, gastritis, hypercholesteremia PSHx: glaucoma, hysterectomy FHx: NC Allergies: PCN (hives) Meds: nebullizer machine (4x/day at home), eye drops, Spiriva in the past Social: denies smoking, alcohol, and drug use; lives alone (used to live with , who recently passed); unemployed Review of Systems - Review of Systems All systems: reviewed and no additional remarkable complaints except (Shortness of breath) Past Patient History - Infectious Disease Hx of Infectious Diseases: None - Tetanus Immunizations Tetanus Immunization: Unknown - Past Medical History & Family History Past Medical History?: Yes - Past Social History Smoking Status: Never Smoked - CARDIAC Hx Hypercholesterolemia: Yes Hx Hypertension: Yes - PULMONARY Hx Bronchitis: Yes Hx Chronic Obstructive Pulmonary Disease (COPD): Yes Hx Emphysema: Yes - NEUROLOGICAL Hx Neurological Disorder: No - HEENT Hx HEENT Problems: Yes Hx Glaucoma: Yes - RENAL Hx Chronic Kidney Disease: No - ENDOCRINE/METABOLIC Hx Endocrine Disorders: No - HEMATOLOGICAL/ONCOLOGICAL Hx Human Immunodeficiency Virus (HIV): No - INTEGUMENTARY Hx Dermatological Problems: No - MUSCULOSKELETAL/RHEUMATOLOGICAL Hx Arthritis: Yes Hx Osteoporosis: Yes - GASTROINTESTINAL Hx Gastritis: Yes - GENITOURINARY/GYNECOLOGICAL Hx Genitourinary Disorders: No - PSYCHIATRIC Hx Anxiety: Yes Hx Depression: Yes Hx Substance Use: No - SURGICAL HISTORY Hx Surgeries: Yes Hx Hysterectomy: Yes Other/Comment: Hernia surgery;glaucoma surgery L eye - ANESTHESIA Hx Anesthesia: Yes Hx Anesthesia Reactions: No Hx Malignant Hyperthermia: No Meds Allergies/Adverse Reactions: Allergies Allergy/AdvReac Type Severity Reaction Status Date / Time Penicillins Allergy Intermediate RASH Verified 12/11/18 11:28 moxifloxacin HCl AdvReac Intermediate RASH Verified 08/26/18 11:28 [From Avelox] - Medications Medications: Current Medications Albuterol Sulfate (Albuterol 0.083% Inhal [place] (2.5 Mg/3 Ml) Ud) 2.5 mg INH RQ6 PRN PRN Reason: Shortness of Breath Albuterol/Ipratropium (Duoneb 3 Mg/0.5 Mg (3 Ml) Ud) 3 ml INH RQ6 [facility] Brimonidine Tartrate (Alphagan 0.2% Opht) 1 ml OD BID [facility] Dorzolamide HCl (Trusopt) 0 ml OD BID [facility] Enoxaparin Sodium (Lovenox) 40 mg SC DAILY [facility] Guaifenesin (Robitussin) 200 mg PO Q4H [facility]AD Last Admin: 08/26/18 17:21 Dose: 200 mg Azithromycin 500 mg/ Sodium (Chloride) 250 mls @ 250 mls/hr IVPB Q24H BRAD; Pr otocol Last Admin: 08/26/18 18:43 Dose: 250 mls/hr Latanoprost (Xalatan Opht) 0 ml OD HS [facility]DA Methylprednisolone (Solu-Medrol) 60 mg IV Q12 [facility] Timolol Maleate (Timoptic 0.5% Ophth Soln) 0 drop OD BID [facility]AD Tiotropium [place] (Spiriva) 18 mcg INH RQ24 [facility] Physical Exam - Head Exam Head Exam: ATRAUMATIC, NORMOCEPHALIC - Eye Exam Eye Exam: Normal appearance - ENT Exam ENT Exam: Mucous Membranes Moist - Respiratory Exam Respiratory Exam: Clear to Auscultation Bilateral - Cardiovascular Exam Cardiovascular Exam: REGULAR RHYTHM - GI/Abdominal Exam GI & Abdominal Exam: Normal Bowel Sounds Results - Vital Signs Recent Vital Signs: Last Vital Signs Temp 98 F 08/26/18 16:15 Pulse 72 08/26/18 16:15 Resp 20 08/26/18 16:15 BP 113/66 08/26/18 16:15 Pulse Ox 98 08/26/18 16:15 - Labs Result Diagrams: 08/26/18 12:23 08/26/18 12:23 Labs: Laboratory Results - last 24 hr 08/26/18 08/26/18 08/26/18 12:23 12:23 13:27 WBC 8.8 D RBC 4.65 Hgb 13.9 Hct 41.2 MCV 88.6 D MCH 29.9 MCHC 33.8 RDW 13.8 Plt Count 271 MPV 8.2 Neut % (Auto) 61.0 Lymph % (Auto) 25.7 [place] % (Auto) 11.1 H Eos % (Auto) 1.4 Baso % (Auto) 0.8 Neut # (Auto) 5.3 Lymph # (Auto) 2.3 [place] # (Auto) 1.0 H Eos # (Auto) 0.1 Baso # (Auto) 0.1 PT 11.9 INR 1.1 APTT 36 H Sodium 138 Potassium 4.4 Chloride 101 Carbon Dioxide 28 Anion Gap 14 BUN 21 H Creatinine 0.9 Est GFR ( Amer) > 60 Est GFR (Non-Af Amer) > 60 Random Glucose 94 Calcium 9.3 Total Bilirubin 0.5 AST 28 ALT 22 Alkaline Phosphatase 90 NT-Pro-B Natriuret Pep 145 Total Protein 7.6 Albumin 4.0 Globulin 3.5 Albumin/Globulin Ratio 1.1 Assessment & Plan (1) COPD exacerbation Status: Acute Comment: continue IV steroids. Nebulizer treatment. Antibiotics. Antidepressant
[2018-08-26] MEDS: Brimonidine 0.2% Opth Sol (5ml) OD SCH (19:10)
[2018-08-26] MEDS: Dorzolamide 2% Opht Sol 10ml OD SCH (22:01)
[2018-08-26] MEDS: Latanoprost 2.5 ml Opht Soln OD SCH (22:02)
--- NOTE | 2018-08-26 22:48 | CP.PCM.HP ---
Past Patient History - Infectious Disease Hx of Infectious Diseases: None - Tetanus Immunizations Tetanus Immunization: Unknown - Past Medical History & Family History Past Medical History?: Yes - Past Social History Smoking Status: Never Smoked - CARDIAC Hx Hypercholesterolemia: Yes Hx Hypertension: Yes - PULMONARY Hx Bronchitis: Yes Hx Chronic Obstructive Pulmonary Disease (COPD): Yes Hx Emphysema: Yes - NEUROLOGICAL Hx Neurological Disorder: No - HEENT Hx HEENT Problems: Yes Hx Glaucoma: Yes - RENAL Hx Chronic Kidney Disease: No - ENDOCRINE/METABOLIC Hx Endocrine Disorders: No - HEMATOLOGICAL/ONCOLOGICAL Hx Human Immunodeficiency Virus (HIV): No - INTEGUMENTARY Hx Dermatological Problems: No - MUSCULOSKELETAL/RHEUMATOLOGICAL Hx Falls: No - GASTROINTESTINAL Hx Gastritis: Yes - GENITOURINARY/GYNECOLOGICAL Hx Genitourinary Disorders: No - PSYCHIATRIC Hx Anxiety: Yes Hx Depression: Yes Hx Substance Use: No - SURGICAL HISTORY Hx Surgeries: Yes Hx Hysterectomy: Yes Other/Comment: Hernia surgery;glaucoma surgery L eye - ANESTHESIA Hx Anesthesia: Yes Hx Anesthesia Reactions: No Hx Malignant Hyperthermia: No Meds Allergies/Adverse Reactions: Allergies Allergy/AdvReac Type Severity Reaction Status Date / Time Penicillins Allergy Intermediate RASH Verified 08/26/18 11:28 moxifloxacin HCl AdvReac Intermediate RASH Verified 08/26/18 11:28 [From Avelox] Results - Vital Signs Recent Vital Signs: Last Vital Signs Temp 98 F 08/26/18 16:15 Pulse 72 08/26/18 16:15 Resp 20 08/26/18 16:15 BP 113/66 08/26/18 16:15 Pulse Ox 98 08/26/18 16:15 - Labs Result Diagrams: 08/26/18 12:23 08/26/18 12:23 Labs: Laboratory Results - last 24 hr 08/26/18 08/26/18 08/26/18 12:23 12:23 13:27 WBC 8.8 D RBC 4.65 Hgb 13.9 Hct 41.2 MCV 88.6 D MCH 29.9 MCHC 33.8 RDW 13.8 Plt Count 271 MPV 8.2 Neut % (Auto) 61.0 Lymph % (Auto) 25.7 [place] % (Auto) 11.1 H Eos % (Auto) 1.4 Baso % (Auto) 0.8 Neut # (Auto) 5.3 Lymph # (Auto) 2.3 [place] # (Auto) 1.0 H Eos # (Auto) 0.1 Baso # (Auto) 0.1 PT 11.9 INR 1.1 APTT 36 H Sodium 138 Potassium 4.4 Chloride 101 Carbon Dioxide 28 Anion Gap 14 BUN 21 H Creatinine 0.9 Est GFR ( Amer) > 60 Est GFR (Non-Af Amer) > 60 Random Glucose 94 Calcium 9.3 Total Bilirubin 0.5 AST 28 ALT 22 Alkaline Phosphatase 90 NT-Pro-B Natriuret Pep 145 Total Protein 7.6 Albumin 4.0 Globulin 3.5 Albumin/Globulin Ratio 1.1
[2018-08-27] MEDS: guaiFENesin 200 mg/10 ml Syrup UD PO SCH ×6 (00:59→21:56)
[2018-08-27] MEDS: Albuterol-Ipratrop 3 mg / 0.5 (3 ml) UD INH SCH ×4 (03:23→18:15)
--- NOTE | 2018-08-27 06:30 | HP ---
CHIEF COMPLAINT: Shortness of breath x2 weeks. HISTORY OF PRESENT ILLNESS: This is a 73-year-old female with history of COPD. Two weeks ago, she started having cough, congestion, shortness of breath, wheezing which got worse last night and she came to emergency room. According to us, she has chest congestion, chest tightness, wheezing, cough, chest pain upon coughing, ____ tiredness, anorexia, malaise and fatigue, nausea. No vomiting. No diarrhea. She denies any polyuria, polydipsia, or polyphagia. She denies any hematuria, pyuria. She denies any sneezing, itchy eyes. She has some runny nose. She has body pain. She denies any hip pain, back pain. She denies any history of skin rash. She denies any history of tingling, numbness, paresthesia. PAST MEDICAL HISTORY: COPD. She also has history of osteoporosis, COPD, depression. SOCIAL HISTORY: Ex-smoker. Non EtOH user. CURRENT MEDICATIONS: At home, she takes nebulizer, DuoNeb. She takes Zithromax, Protonix, Ventolin HFA, Alphagan eye drops, dorzolamide, Timoptic eye drops, Trav[place] eye drops, guaifenesin. PHYSICAL EXAMINATION GENERAL: An elderly female in moderate respiratory distress. VITAL SIGNS: Blood pressure 109/49, pulse 70, respiratory rate 16, temperature 98. LUNGS: Bilateral decreased air entry. Few rhonchi. CVS: S1 and S2 regular. ABDOMEN: Soft. SKIN: No rashes. No bruises. No purpura. HEENT: Atraumatic. Normocephalic. Negative pallor. Negative jaundice. Extraocular movements are intact. NECK: Supple, using accessory muscles bilateral. No JVD. No lymph nodes. ABDOMEN: Soft, nontender. Bowel sounds are positive. RECTAL: No masses. No bleed. EXTREMITIES: No clubbing, cyanosis, or edema. INTAKE NURSE: Awake, alert, and oriented x3. ASSESSMENT: 1. Acute exacerbation of chronic obstructive pulmonary disease. 2. Gastroesophageal reflux disease. 3. Glaucoma. PLAN: Admit. Detailed orders written. Seen and examined. Michael Fontaine MD
[2018-08-27] MEDS: Tiotropium 18 mcg Cap For Inhalation INH SCH (07:35)
[2018-08-27] MEDS ORDERED: Pneumococcal 23-Valent Vaccine IM ONE (10:00)
[2018-08-27] MEDS ORDERED: Influenza Vaccine 60 MCG/0.5 ML SYR (3 yr & up) IM ONE (10:00)
[2018-08-27] MEDS: Enoxaparin 40 mg Syringe SC SCH (10:37)
[2018-08-27] MEDS: Dorzolamide 2% Opht Sol 10ml OD SCH ×3 (10:44→18:40)
[2018-08-27] MEDS: Brimonidine 0.2% Opth Sol (5ml) OD SCH ×2 (10:48→18:34)
--- NOTE | 2018-08-27 15:10 | CP.PCM.PN ---
Subjective - Date & Time of Evaluation Date of Evaluation: 08/27/18 Time of Evaluation: 10:00 - Subjective Subjective: patient seen and examined Still complaining of cough and shortness of breath Patient feels depressed Afebrile Objective - Vital Signs/Intake and Output Vital Signs (last 24 hours): Temp Pulse Resp BP Pulse Ox 98.0 F 78 20 102/57 L 99 08/27/18 08:00 08/27/18 08:00 08/27/18 08:00 08/27/18 08:00 08/27/18 12:12 Intake and Output: 08/27/18 08/27/18 06:59 18:59 Intake Total 240 240 Balance 240 240 - Medications Medications: Current Medications Albuterol Sulfate (Albuterol 0.083% Inhal [place] (2.5 Mg/3 Ml) Ud) 2.5 mg INH RQ6 PRN PRN Reason: Shortness of Breath Albuterol/Ipratropium (Duoneb 3 Mg/0.5 Mg (3 Ml) Ud) 3 ml INH RQ6 [facility]AD Last Admin: 08/27/18 13:25 Dose: 3 ml Brimonidine Tartrate (Alphagan 0.2% Opht) 1 ml OD BID [facility] Last Admin: 08/27/18 10:48 Dose: Not Given Dorzolamide HCl (Trusopt) 0 ml OD BID [facility] Last Admin: 08/27/18 10:44 Dose: 1 drop Enoxaparin Sodium (Lovenox) 40 mg SC DAILY [facility] Last Admin: 08/27/18 10:37 Dose: 40 mg Guaifenesin (Robitussin) 200 mg PO Q4H [facility]AD Last Admin: 08/27/18 13:33 Dose: 200 mg Azithromycin 500 mg/ Sodium (Chloride) 250 mls @ 250 mls/hr IVPB Q24H [facility]; Protocol Last Admin: 08/26/18 18:43 Dose: 250 mls/hr Latanoprost (Xalatan Opht) 0 ml OD HS [facility] Last Admin: 08/26/18 22:02 Dose: 1 ml Methylprednisolone (Solu-Medrol) 60 mg IV Q12 [facility]AD Last Admin: 08/27/18 10:36 Dose: 60 mg Timolol Maleate (Timoptic 0.5% Ophth Soln) 0 drop OD BID [facility] Last Admin: 08/27/18 10:42 Dose: 1 drop Tiotropium [place] (Spiriva) 18 mcg INH RQ24 [facility]AD Last Admin: 08/27/18 07:35 Dose: 18 mcg - Labs Labs: 08/26/18 12:23 08/26/18 12:23 PT 11.9 SECONDS (9.7-12.2) 08/26/18 13:27 INR 1.1 08/26/18 13:27 APTT 36 SECONDS (21-34) H 08/26/18 13:27 - Head Exam Head Exam: ATRAUMATIC, NORMOCEPHALIC - Eye Exam Eye Exam: Normal appearance - ENT Exam ENT Exam: Mucous Membranes Moist - Neck Exam Neck Exam: Normal Inspection - Respiratory Exam Respiratory Exam: Rhonchi - Cardiovascular Exam Cardiovascular Exam: REGULAR RHYTHM - GI/Abdominal Exam GI & Abdominal Exam: Soft, Normal Bowel Sounds - Extremities Exam Extremities Exam: Normal Inspection Assessment and Plan (1) COPD exacerbation Assessment & Plan: Switch to prednisone Nebulizer treatment Psych evaluation for depression Status: Acute
[2018-08-27] MEDS: Azithromycin 500 MG in Sodium Chloride 0.9% 250 ML IVPB SCH (18:01)
[2018-08-27] MEDS ORDERED: Patient's Own Drops OS SCH (19:00)
--- NOTE | 2018-08-27 21:36 | CP.PCM.PN ---
Subjective - Subjective Subjective: dictated Objective - Vital Signs/Intake and Output Vital Signs (last 24 hours): Temp Pulse Resp BP Pulse Ox 98.0 F 80 20 100/56 L 99 08/27/18 16:00 08/27/18 16:00 08/27/18 16:00 08/27/18 16:00 08/27/18 20:11 Intake and Output: 08/27/18 08/28/18 18:59 06:59 Intake Total 240 Balance 240 - Medications Medications: Current Medications Albuterol Sulfate (Albuterol 0.083% Inhal [place] (2.5 Mg/3 Ml) Ud) 2.5 mg INH RQ6 PRN PRN Reason: Shortness of Breath Albuterol/Ipratropium (Duoneb 3 Mg/0.5 Mg (3 Ml) Ud) 3 ml INH RQ6 [facility] Last Admin: 08/27/18 13:25 Dose: 3 ml Azithromycin (Zithromax) 500 mg PO DAILY [facility]; Protocol Stop: 09/01/18 10:01 Brimonidine Tartrate (Alphagan 0.2% Opht) 0 ml OD BID [facility] Last Admin: 08/27/18 18:34 Dose: 1 drop Dorzolamide HCl (Trusopt) 0 ml OD BID [facility] Last Admin: 08/27/18 18:40 Dose: Not Given Enoxaparin Sodium (Lovenox) 40 mg SC DAILY [facility] Last Admin: 08/27/18 10:37 Dose: 40 mg Guaifenesin (Robitussin) 200 mg PO Q4H [facility] Last Admin: 08/27/18 18:01 Dose: 200 mg Latanoprost (Xalatan Opht) 0 ml OD HS [facility] Last Admin: 08/26/18 22:02 Dose: 1 ml Methylprednisolone (Solu-Medrol) 60 mg IV Q12 [facility] Last Admin: 08/27/18 10:36 Dose: 60 mg Timolol Maleate (Timoptic 0.5% Ophth Soln) 0 drop OD BID [facility] Last Admin: 08/27/18 18:15 Dose: 1 drop Tiotropium [place] (Spiriva) 18 mcg INH RQ24 [facility] Last Admin: 08/27/18 07:35 Dose: 18 mcg - Labs Labs: 08/26/18 12:23 08/26/18 12:23 PT 11.9 SECONDS (9.7-12.2) 12/11/18 13:27 INR 1.1 08/26/18 13:27 APTT 36 SECONDS (21-34) H 08/26/18 13:27
[2018-08-27] MEDS: Latanoprost 2.5 ml Opht Soln OD SCH (21:55)
[2018-08-27] MEDS ORDERED: Patient's Own Drops OU SCH (22:00)
[2018-08-28] MEDS: guaiFENesin 200 mg/10 ml Syrup UD PO SCH ×6 (00:52→22:28)
[2018-08-28] MEDS: Albuterol-Ipratrop 3 mg / 0.5 (3 ml) UD INH SCH ×4 (02:24→19:40)
--- NOTE | 2018-08-28 02:49 | PN ---
DATE: 08/27/2018 SUBJECTIVE: The patient, Cesar, is less cough, less short of breath, less wheezing. She feels better. No nausea or vomiting. PHYSICAL EXAMINATION: VITAL SIGNS: Blood pressure 100/56, pulse 80, respiratory rate 20, and temperature 98. LUNGS: Decreased air entry. Positive rhonchi. CARDIOVASCULAR SYSTEM: S1 and S2 regular. ABDOMEN: Soft. ASSESSMENT: 1. Tracheobronchitis. 2. Exacerbation of chronic obstructive pulmonary disease. 3. Anxiety. PLAN: Continue current medications. Taper steroids. Michael Fontaine MD
[2018-08-28] MEDS: Brimonidine 0.2% Opth Sol (5ml) OD SCH (09:46)
[2018-08-28] MEDS: Dorzolamide 2% Opht Sol 10ml OD SCH (09:46)
[2018-08-28] MEDS: Tiotropium 18 mcg Cap For Inhalation INH SCH (10:40)
[2018-08-28] MEDS: MethylPREDNISolone 40 mg Vial IV SCH ×2 (12:37→22:28)
[2018-08-28] MEDS: Enoxaparin 40 mg Syringe SC SCH (12:37)
--- NOTE | 2018-08-28 16:44 | CP.PCM.PN ---
Subjective - Date & Time of Evaluation Date of Evaluation: 08/28/18 Time of Evaluation: 11:20 - Subjective Subjective: Patient seen and examined at bedside, lying down comfortably. Patient reports cough and SOB Afebrile and in no acute distress. Continue prednisone, nebulizer Patient will benefit from psych eval for depression Objective - Vital Signs/Intake and Output Vital Signs (last 24 hours): Temp Pulse Resp BP Pulse Ox 98 F 71 20 105/62 96 08/28/18 16:00 08/28/18 16:00 08/28/18 16:00 08/28/18 16:00 08/28/18 16:00 Intake and Output: 08/28/18 08/28/18 06:59 18:59 Intake Total 550 Balance 550 - Medications Medications: Current Medications Albuterol Sulfate (Albuterol 0.083% Inhal [place] (2.5 Mg/3 Ml) Ud) 2.5 mg INH RQ6 PRN PRN Reason: Shortness of Breath Albuterol/Ipratropium (Duoneb 3 Mg/0.5 Mg (3 Ml) Ud) 3 ml INH RQ6 [facility] Last Admin: 08/28/18 13:31 Dose: 3 ml Azithromycin (Zithromax) 500 mg PO DAILY [facility]; Protocol Stop: 09/01/18 10:01 Last Admin: 08/28/18 09:38 Dose: 500 mg Brimonidine Tartrate (Alphagan 0.2% Opht) 0 ml OD BID [facility] Last Admin: 08/28/18 09:46 Dose: Not Given Dorzolamide HCl (Trusopt) 0 ml OD BID [facility] Last Admin: 08/28/18 09:46 Dose: Not Given Enoxaparin Sodium (Lovenox) 40 mg SC DAILY [facility] Last Admin: 08/28/18 12:37 Dose: 40 mg Guaifenesin (Robitussin) 200 mg PO Q4H [facility] Last Admin: 08/28/18 14:16 Dose: 200 mg Latanoprost (Xalatan Opht) 0 ml OD HS [facility] Last Admin: 08/27/18 21:55 Dose: Not Given Methylprednisolone (Solu-Medrol) 40 mg IV Q12H [facility] Last Admin: 08/28/18 12:37 Dose: 40 mg Timolol Maleate (Timoptic 0.5% Ophth Soln) 0 drop OD BID [facility] Last Admin: 08/28/18 09:46 Dose: Not Given Tiotropium [place] (Spiriva) 18 mcg INH RQ24 [facility] Last Admin: 08/28/18 10:40 Dose: 18 mcg - Labs Labs: 08/26/18 12:23 08/26/18 12:23 PT 11.9 SECONDS (9.7-12.2) 08/26/18 13:27 INR 1.1 08/26/18 13:27 APTT 36 SECONDS (21-34) H 08/26/18 13:27 Assessment and Plan (1) COPD exacerbation Status: Acute
--- NOTE | 2018-08-28 21:52 | CP.PCM.PN ---
Subjective - Subjective Subjective: dictated Objective - Vital Signs/Intake and Output Vital Signs (last 24 hours): Temp Pulse Resp BP Pulse Ox 98 F 71 20 105/62 96 08/28/18 16:00 08/28/18 16:00 08/28/18 16:00 08/28/18 16:00 08/28/18 16:00 - Medications Medications: Current Medications Albuterol Sulfate (Albuterol 0.083% Inhal [place] (2.5 Mg/3 Ml) Ud) 2.5 mg INH RQ6 PRN PRN Reason: Shortness of Breath Albuterol/Ipratropium (Duoneb 3 Mg/0.5 Mg (3 Ml) Ud) 3 ml INH RQ6 [facility] Last Admin: 08/28/18 19:40 Dose: 3 ml Azithromycin (Zithromax) 500 mg PO DAILY [facility]; Protocol Stop: 09/01/18 10:01 Last Admin: 08/28/18 09:38 Dose: 500 mg Brimonidine Tartrate (Alphagan 0.2% Opht) 0 ml OD BID [facility] Last Admin: 08/28/18 09:46 Dose: Not Given Dorzolamide HCl (Trusopt) 0 ml OD BID [facility] Last Admin: 08/28/18 09:46 Dose: Not Given Enoxaparin Sodium (Lovenox) 40 mg SC DAILY [facility] Last Admin: 08/28/18 12:37 Dose: 40 mg Guaifenesin (Robitussin) 200 mg PO Q4H [facility] Last Admin: 08/28/18 17:20 Dose: 200 mg Latanoprost (Xalatan Opht) 0 ml OD HS [facility] Last Admin: 08/27/18 21:55 Dose: Not Given Methylprednisolone (Solu-Medrol) 40 mg IV Q12H [facility] Last Admin: 08/28/18 12:37 Dose: 40 mg Timolol Maleate (Timoptic 0.5% Ophth Soln) 0 drop OD BID [facility] Last Admin: 08/28/18 09:46 Dose: Not Given Tiotropium [place] (Spiriva) 18 mcg INH RQ24 [facility] Last Admin: 08/28/18 10:40 Dose: 18 mcg - Labs Labs: 08/26/18 12:23 08/26/18 12:23 PT 11.9 SECONDS (9.7-12.2) 08/26/18 13:27 INR 1.1 12/11/18 13:27 APTT 36 SECONDS (21-34) H 08/26/18 13:27
[2018-08-29] MEDS: guaiFENesin 200 mg/10 ml Syrup UD PO SCH ×6 (01:20→21:51)
[2018-08-29] MEDS: Albuterol-Ipratrop 3 mg / 0.5 (3 ml) UD INH SCH ×4 (02:30→19:20)
--- NOTE | 2018-08-29 05:21 | CARD ---
APPROVED REPORT Date of service: 08/26/2018 EKG Measurement Heart [id number] <Conclusion> Normal sinus rhythm Normal ECG
[2018-08-29 07:24] LABS: BASO % 0.1 % (0.0-2.0); HEMOGLOBIN 13.6 g/dL (11.0-16.0); LYMPH # 0.8 K/uL (1.0-4.3); LYMPH % 5.1 % (20.0-40.0); MEAN CELL VOLUME 87.9 fL (81.0-99.0); MEAN CORPUSCULAR HEMOGLOBIN 30.1 pg (27.0-31.0); MEAN CORPUSCULAR HGB CONC 34.2 g/dL (33.0-37.0); MEAN PLATELET VOLUME 8.9 fL (7.2-11.7); MONO # 0.2 K/uL (0.0-0.8); MONO % 1.6 % (0.0-10.0); NEUT # 13.9 K/uL (1.8-7.0); NEUT % 93.2 % (50.0-75.0); PLATELET COUNT 249 K/uL (130-400); RBC 4.51 Mil/uL (3.80-5.20); RED CELL DISTRIBUTION WIDTH 14.2 % (11.5-14.5)
[2018-08-29 07:30] LABS: WHITE BLOOD COUNT 14.9 K/uL (4.8-10.8)
[2018-08-29 08:00] LABS: BLOOD UREA NITROGEN 20 mg/dL (7-17); CALCIUM 8.6 mg/dl (8.6-10.4); GFR NON-AFRICAN AMERICAN > 60
[2018-08-29 08:43] LABS: LYMPHOCYTE 3 % (20-40); MONOCYTE 1 % (0-10); NEUTROPHIL 96 % (50-75); TOTAL CELLS COUNTED 100
[2018-08-29 08:44] LABS: PLATELET ESTIMATE NORMAL (NORMAL)
[2018-08-29] MEDS: Tiotropium 18 mcg Cap For Inhalation INH SCH (09:02)
[2018-08-29] MEDS: MethylPREDNISolone 40 mg Vial IV SCH ×2 (10:12→22:37)
[2018-08-29] MEDS: Enoxaparin 40 mg Syringe SC SCH (10:13)
[2018-08-29] MEDS: Brimonidine 0.2% Opth Sol (5ml) OD SCH ×2 (10:20→18:23)
[2018-08-29] MEDS: Dorzolamide 2% Opht Sol 10ml OD SCH ×2 (10:20→18:23)
--- NOTE | 2018-08-29 13:33 | CP.PCM.PN ---
Subjective - Date & Time of Evaluation Date of Evaluation: 08/29/18 Time of Evaluation: 07:00 - Subjective Subjective: Patient seen and examined at bedside, lying down comfortably. Patient reports cough, Afebrile and in no acute distress. Objective - Vital Signs/Intake and Output Vital Signs (last 24 hours): Temp Pulse Resp BP Pulse Ox 98.1 F 67 20 108/63 95 08/29/18 07:22 08/29/18 07:22 08/29/18 07:22 08/29/18 07:22 08/29/18 07:22 Intake and Output: 08/29/18 08/29/18 06:59 18:59 Intake Total 150 Balance 150 - Medications Medications: Current Medications Albuterol Sulfate (Albuterol 0.083% Inhal Antonia (2.5 Mg/3 Ml) Ud) 2.5 mg INH RQ6 PRN PRN Reason: Shortness of Breath Albuterol/Ipratropium (Duoneb 3 Mg/0.5 Mg (3 Ml) Ud) 3 ml INH RQ6 [facility] Last Admin: 08/29/18 13:21 Dose: 3 ml Azithromycin (Zithromax) 500 mg PO DAILY [facility]; Protocol Stop: 09/01/18 10:01 Last Admin: 08/29/18 10:11 Dose: 500 mg Brimonidine Tartrate (Alphagan 0.2% Opht) 0 ml OD BID [facility] Last Admin: 08/29/18 10:20 Dose: Not Given Dorzolamide HCl (Trusopt) 0 ml OD BID [facility] Last Admin: 08/29/18 10:20 Dose: Not Given Enoxaparin Sodium (Lovenox) 40 mg SC DAILY [facility] Last Admin: 08/29/18 10:13 Dose: 40 mg Guaifenesin (Robitussin) 200 mg PO Q4H [facility] Last Admin: 08/29/18 09:12 Dose: 200 mg Latanoprost (Xalatan Opht) 0 ml OD HS [facility] Last Admin: 08/27/18 21:55 Dose: Not Given Methylprednisolone (Solu-Medrol) 40 mg IV Q12H [facility] Last Admin: 08/29/18 10:12 Dose: 40 mg Timolol Maleate (Timoptic 0.5% Ophth Soln) 0 drop OD BID [facility] Last Admin: 12/14/18 10:18 Dose: 1 drop Tiotropium [place] (Spiriva) 18 mcg INH RQ24 [facility] Last Admin: 08/29/18 09:02 Dose: 18 mcg - Labs Labs: 08/29/18 07:09 08/29/18 07:09 PT 11.9 SECONDS (9.7-12.2) 08/26/18 13:27 INR 1.1 08/26/18 13:27 APTT 36 SECONDS (21-34) H 08/26/18 13:27 - Head Exam Head Exam: ATRAUMATIC, NORMOCEPHALIC - Eye Exam Eye Exam: Normal appearance - ENT Exam ENT Exam: Mucous Membranes Moist - Respiratory Exam Respiratory Exam: Rhonchi - Cardiovascular Exam Cardiovascular Exam: REGULAR RHYTHM - GI/Abdominal Exam GI & Abdominal Exam: Soft Assessment and Plan (1) COPD exacerbation Assessment & Plan: taper steroids Nebulizer treatment Antitussive Status: Acute
[2018-08-29] MEDS: Latanoprost 2.5 ml Opht Soln OD SCH (21:52)
--- NOTE | 2018-08-29 23:50 | CP.PCM.PN ---
Subjective - Subjective Subjective: dictated Objective - Vital Signs/Intake and Output Vital Signs (last 24 hours): Temp Pulse Resp BP Pulse Ox 98.9 F 80 20 122/68 98 08/29/18 16:00 08/29/18 16:00 08/29/18 16:00 08/29/18 16:00 08/29/18 16:00 - Medications Medications: Current Medications Albuterol Sulfate (Albuterol 0.083% Inhal [place] (2.5 Mg/3 Ml) Ud) 2.5 mg INH RQ6 PRN PRN Reason: Shortness of Breath Albuterol/Ipratropium (Duoneb 3 Mg/0.5 Mg (3 Ml) Ud) 3 ml INH RQ6 [facility] Last Admin: 08/29/18 19:20 Dose: 3 ml Azithromycin (Zithromax) 500 mg PO DAILY [facility]; Protocol Stop: 09/01/18 10:01 Last Admin: 08/29/18 10:11 Dose: 500 mg Brimonidine Tartrate (Alphagan 0.2% Opht) 0 ml OD BID [facility] Last Admin: 08/29/18 18:23 Dose: Not Given Dorzolamide HCl (Trusopt) 0 ml OD BID [facility] Last Admin: 08/29/18 18:23 Dose: Not Given Enoxaparin Sodium (Lovenox) 40 mg SC DAILY [facility] Last Admin: 08/29/18 10:13 Dose: 40 mg Guaifenesin (Robitussin) 200 mg PO Q4H [facility] Last Admin: 08/29/18 21:51 Dose: 200 mg Latanoprost (Xalatan Opht) 0 ml OD HS [facility] Last Admin: 08/29/18 21:52 Dose: 2.5 ml Methylprednisolone (Solu-Medrol) 40 mg IV Q12H [facility] Last Admin: 08/29/18 22:37 Dose: 40 mg Timolol Maleate (Timoptic 0.5% Ophth Soln) 0 drop OD BID [facility] Last Admin: 08/29/18 18:23 Dose: Not Given Tiotropium [place] (Spiriva) 18 mcg INH RQ24 [facility] Last Admin: 08/29/18 09:02 Dose: 18 mcg - Labs Labs: 08/29/18 07:09 08/29/18 07:09 PT 11.9 SECONDS (9.7-12.2) 08/26/18 13:27 INR 1.1 08/26/18 13:27 APTT 36 SECONDS (21-34) H 08/26/18 13:27
[2018-08-30] MEDS: guaiFENesin 200 mg/10 ml Syrup UD PO SCH ×2 (01:12→06:12)
--- NOTE | 2018-08-30 01:44 | PN ---
DATE: 08/28/2018 SUBJECTIVE: The patient was seen on 08/28/2018. PHYSICAL EXAMINATION: VITAL SIGNS: Blood pressure is 105/62, pulse 71, respiratory rate 20, and temperature 98. LUNGS: Decrease air entry. Positive rhonchi. CARDIOVASCULAR SYSTEM: S1 and S2 are regular. ABDOMEN: Soft, nontender. Bowel sounds are positive. ASSESSMENT: Chronic obstructive pulmonary disease exacerbation. PLAN: Continue current medication. Monitor the patient. Michael Fontaine MD
--- NOTE | 2018-08-30 01:46 | PN ---
DATE: 08/29/2018 SUBJECTIVE: The patient is seen today. She is afebrile, less shortness of breath, less wheezing. PHYSICAL EXAMINATION: VITAL SIGNS: Blood pressure 132/65, pulse 61, respiratory rate 20, and temperature 97.7. LUNGS: Decreased air entry. Positive rhonchi. CARDIOVASCULAR SYSTEM: S1 and S2 are regular. ABDOMEN: Soft. ASSESSMENT: Exacerbation of chronic obstructive pulmonary disease. PLAN: Continue current medication. Monitor the patient. Michael Fontaine MD
[2018-08-30] MEDS: Albuterol-Ipratrop 3 mg / 0.5 (3 ml) UD INH SCH ×2 (02:10→08:25)
[2018-08-30 07:47] VITALS: BP 160/71; PULSE 80; TEMP 99.6; O2SAT 98
[2018-08-30] MEDS: Tiotropium 18 mcg Cap For Inhalation INH SCH (08:25)
--- NOTE | 2018-08-30 19:10 | CP.PCM.DIS ---
Provider - Provider Date of Admission: 08/28/18 11:40 Attending physician: Michael Fontaine MD Consults: 08/26/18 17:00 Pulmonology Consult Routine Comment: Consulting Provider: Jimmy Yanes Consulting Physician: Jimmy Yanes Reason for Consult: copd 08/26/18 20:20 Case Management Referral Routine Comment: Physician Instructions: Reason For Exam: Reason for Referral: Discharge Planning Inpatient [employer] Referral Routine Comment: Physician Instructions: Reason For Exam: History:COPD Hospital Course - Lab Results Lab Results: Most Recent Lab Values WBC 14.9 K/uL (4.8-10.8) H D 08/29/18 07:09 RBC 4.51 Mil/uL (3.80-5.20) 08/29/18 07:09 Hgb 13.6 g/dL (11.0-16.0) 08/29/18 07:09 Hct 39.6 % (34.0-47.0) 08/29/18 07:09 MCV 87.9 fL (81.0-99.0) 08/29/18 07:09 MCH 30.1 pg (27.0-31.0) 08/29/18 07:09 MCHC 34.2 g/dL (33.0-37.0) 08/29/18 07:09 RDW 14.2 % (11.5-14.5) 08/29/18 07:09 Plt Count 249 K/uL (130-400) 08/29/18 07:09 MPV 8.9 fL (7.2-11.7) 08/29/18 07:09 Neut % (Auto) 93.2 % (50.0-75.0) H 08/29/18 07:09 Lymph % (Auto) 5.1 % (20.0-40.0) L 08/29/18 07:09 [place] % (Auto) 1.6 % (0.0-10.0) 08/29/18 07:09 Eos % (Auto) 0.0 % (0.0-4.0) 08/29/18 07:09 Baso % (Auto) 0.1 % (0.0-2.0) 08/29/18 07:09 Neut # (Auto) 13.9 K/uL (1.8-7.0) H 08/29/18 07:09 Lymph # (Auto) 0.8 K/uL (1.0-4.3) L 08/29/18 07:09 [place] # (Auto) 0.2 K/uL (0.0-0.8) 08/29/18 07:09 Eos # (Auto) 0.0 K/uL (0.0-0.7) 08/29/18 07:09 Baso # (Auto) 0.0 K/uL (0.0-0.2) 08/29/18 07:09 Neutrophils % (Manual) 96 % (50-75) H 08/29/18 07:09 Lymphocytes % (Manual) 3 % (20-40) L 08/29/18 07:09 Monocytes % (Manual) 1 % (0-10) 08/29/18 07:09 Platelet Estimate Normal (NORMAL) 08/29/18 07:09 RBC Morphology Normal 08/29/18 07:09 PT 11.9 SECONDS (9.7-12.2) 08/26/18 13:27 INR 1.1 08/26/18 13:27 APTT 36 SECONDS (21-34) H 08/26/18 13:27 Sodium 137 mmol/L (132-148) 08/29/18 07:09 Potassium 4.0 mmol/L (3.6-5.2) 08/29/18 07:09 Chloride 102 mmol/L (98-107) 08/29/18 07:09 Carbon Dioxide 27 mmol/L (22-30) 08/29/18 07:09 Anion Gap 12 (10-20) 08/29/18 07:09 BUN 20 mg/dL (7-17) H 08/29/18 07:09 Creatinine 0.7 mg/dL (0.7-1.2) 08/29/18 07:09 Est GFR ( Amer) > 60 08/29/18 07:09 Est GFR (Non-Af Amer) > 60 08/29/18 07:09 Random Glucose 132 mg/dL (65-105) H 08/29/18 07:09 Calcium 8.6 mg/dl (8.6-10.4) 08/29/18 07:09 Total Bilirubin 0.5 mg/dL (0.2-1.3) 08/26/18 12:23 AST 28 U/L (14-36) 08/26/18 12:23 ALT 22 U/L (9-52) 08/26/18 12:23 Alkaline Phosphatase 90 U/L (38-126) 08/26/18 12:23 NT-Pro-B Natriuret Pep 145 pg/mL (0-900) 08/26/18 12:23 Total Protein 7.6 g/dL (6.3-8.3) 08/26/18 12:23 Albumin 4.0 g/dL (3.5-5.0) 08/26/18 12:23 Globulin 3.5 gm/dL (2.2-3.9) 08/26/18 12:23 Albumin/Globulin Ratio 1.1 (1.0-2.1) 08/26/18 12:23 Discharge Exam - Head Exam Head Exam: ATRAUMATIC, NORMOCEPHALIC Discharge Plan - Follow Up Plan Condition: STABLE Disposition: HOME/ ROUTINE Instructions: Exacerbation of COPD (DC), Guaifenesin and Codeine, Ipratropium and Albuterol, Prednisone Additional Instructions: F/U with Dr. Fontaine in one week in his office Referrals: Michael Fontaine MD [Staff Provider] -
== END 2018-08-30 08:46 | disposition home or self-care (01) | DRG 192 ==
LOC: C.ER 11:19 → C.9E 14:18 → C.3T 15:32 → OBSVTOIN 08-28 11:40
PROVIDERS: ADMIT Internal Medicine; ATTEND Internal Medicine
DX: J44.1 Chronic obstructive pulmonary disease with (acute) exacerbation (principal); M81.0 Age-related osteoporosis without current pathological fracture; Z87.891 Personal history of nicotine dependence; I10 Essential (primary) hypertension; E78.00 Pure hypercholesterolemia, unspecified; F41.9 Anxiety disorder, unspecified; H40.9 Unspecified glaucoma; K21.9 Gastro-esophageal reflux disease without esophagitis

== ENCOUNTER 2018-12-02 10:39 | Inpatient (IN) | payer MEDICARE ==
[2018-12-02 10:39] VITALS: BMI 25.0
[2018-12-02 11:47] LABS: SQUAMOUS EPITHIAL 4 /hpf (0-5); URINE BACTERIA FEW (<OCC); URINE BILIRUBIN NEGATIVE (NEGATIVE); URINE BLOOD 1+ (NEGATIVE); URINE CLARITY Hazy (Clear); URINE COLOR Yellow (YELLOW); URINE GLUCOSE (UA) NORMAL (Normal); URINE LEUKOCYTE ESTERASE 3+ Leu/uL (Negative); URINE PROTEIN NEGATIVE (NEGATIVE); URINE UROBILINOGEN NORMAL mg/dL (0.2-1.0); WBC CLUMPS OCC /hpf
--- NOTE | 2018-12-02 12:03 | C.PDOC ---
History Of Present Illness 73 year old female presents to ED with complaint of left lower quadrant pain and left lower back pain for the past week. Patient also complains of dysuria. She describes the pain as radiating from the left lower back to the left side of the abdomen. Patient states that her last bowel movement was this morning and noted nothing unusual. Patient denies fever, chills, nausea, and vomiting. Time Seen by Provider: 12/02/18 11:09 Chief Complaint (Nursing): Abdominal Pain History Per: Patient History/Exam Limitations: no limitations Onset/Duration Of Symptoms: Days (7) Current Symptoms Are (Timing): Still Present Location Of Pain/Discomfort: LLQ Radiation Of Pain To:: Back (left lower back) Quality Of Discomfort: "Pain" Associated Symptoms: Urinary Symptoms (dysuria). denies: Fever, Chills, Nausea, Vomiting Exacerbating Factors: None Alleviating Factors: None Last Bowel Movement: Today Past Medical History Reviewed: Historical Data, Nursing Documentation, Vital Signs Vital Signs: Last Vital Signs Temp 97.5 F L 12/02/18 11:03 Pulse 55 L 12/02/18 11:03 Resp 20 12/02/18 11:03 BP 122/69 12/02/18 11:03 Pulse Ox 98 12/02/18 11:03 - Medical History PMH: Anxiety, Arthritis, Bronchitis, COPD, Depression, Emphysema, Gastritis, HTN, Hypercholesterolemia, Osteoporosis Denies: Asthma, Crohn's Disease, Diverticulitis, Gall Bladder Disease, HIV, Pancreatitis, Chronic Kidney Disease Surgical History: Endoscopy - [facility] Procedures CATARAC PHACOEMULS/ASPIR (02/13/01) CORONAR ARTERIOGR-2 CATH (02/19/13) ESOPHAGOGASTRODUODENOSCOPY [EGD] W/CLOSED BIOPSY (07/19/14) INSERT LENS AT CATAR EXT (02/13/01) LEFT HEART CARDIAC CATH (02/19/13) LT HEART ANGIOCARDIOGRAM (02/19/13) NEBULIZER THERAPY (02/19/13) Family History: States: Unknown Family Hx - Social History Hx Tobacco Use: No Hx Alcohol Use: No Hx Substance Use: No - Immunization History Hx Tetanus Toxoid Vaccination: No Hx Influenza Vaccination: No Hx Pneumococcal Vaccination: No Review Of Systems Constitutional: Negative for: Fever, Chills, Weakness Gastrointestinal: Positive for: Abdominal Pain (left lower quadrant). Negative for: Nausea, Vomiting Genitourinary: Positive for: Dysuria Musculoskeletal: Positive for: Back Pain (left lower back) Neurological: Negative for: Weakness, Numbness, Dizziness Physical Exam - Physical Exam Appears: Well, Non-toxic, No Acute Distress Skin: Normal Color, Warm, Dry Head: Atraumatic, Normacephalic Eye(s): bilateral: Normal Inspection, PERRL, EOMI Oral Mucosa: Moist Neck: Normal ROM, Supple Chest: Symmetrical Cardiovascular: Rhythm Regular, No Murmur Respiratory: No Accessory Muscle Use, No Rales, No Rhonchi, No Wheezing Gastrointestinal/Abdominal: Bowel Sounds (normal), Soft, Tenderness (left lower quadrant, suprapubic area), No Guarding, No Rebound Back: No CVA Tenderness Extremity: Capillary Refill (<2 seconds) Extremity: Bilateral: Atraumatic, Normal Color And Temperature, Normal ROM Pulses: Left Dorsalis Pedis: Normal, Right Dorsalis Pedis: Normal Neurological/Psych: Oriented x3, Normal Speech, Normal Cognition ED Course And Treatment - Laboratory Results Result Diagrams: 12/02/18 12:32 12/02/18 12:32 Lab Results: Urine Color Yellow (YELLOW) 12/02/18 11:28 Urine Clarity Hazy (Clear) 12/02/18 11:28 Urine pH 6.0 (5.0-8.0) 12/02/18 11:28 Ur Specific [place] 1.015 (1.003-1.030) 12/02/18 11:28 Urine Protein Negative mg/dL (NEGATIVE) 12/02/18 11:28 Urine Glucose (UA) Normal mg/dL (Normal) 12/02/18 11:28 Urine Ketones Negative mg/dL (NEGATIVE) 12/02/18 11:28 Urine Blood 1+ (NEGATIVE) H 12/02/18 11:28 Urine Nitrate Positive (NEGATIVE) H 12/02/18 11:28 Urine Bilirubin Negative (NEGATIVE) 12/02/18 11:28 Urine Urobilinogen Normal mg/dL (0.2-1.0) 12/02/18 11:28 Ur Leukocyte Esterase 3+ [place]irdre/uL (Negative) H 12/02/18 11:28 Urine WBC (Auto) 1155 /hpf (0-5) H 12/02/18 11:28 Urine RBC (Auto) 12 /hpf (0-3) H 12/02/18 11:28 Urine WBC Clumps (Auto) Occ /hpf (NONE) H 12/02/18 11:28 Ur Squamous Epith Cells 4 /hpf (0-5) 12/02/18 11:28 Urine Bacteria Few (<OCC) H 12/02/18 11:28 O2 Sat by Pulse Oximetry: 98 (in RA) Medical Decision Making Medical Decision Making: Impression: 73 year old female with complaint of left lower quadrant pain and left lower back pain Plan: CMP CBC UA Blood culture urine culture IV fluids 1404: Accepted for admission by Dr. Chiquita Fontaine. Disposition - Disposition Forms: [facility] (Telugu) - Scribe Statement The provider has reviewed the documentation as recorded by the Scribe (Char Holbrook) All medical record entries made by the Scribe were at my direction and personally dictated by me. I have reviewed the chart and agree that the record accurately reflects my personal performance of the history, physical exam, medical decision making, and the department course for this patient. I have also personally directed, reviewed, and agree with the discharge instructions and disposition.
[2018-12-02 12:44] LABS: BASO # 0.1 K/uL (0.0-0.2); BASO % 1.1 % (0.0-2.0); EOS # 0.2 K/uL (0.0-0.7); EOS % 2.3 % (0.0-4.0); LYMPH % 28.8 % (20.0-40.0); MEAN CELL VOLUME 89.1 fL (81.0-99.0); MEAN CORPUSCULAR HEMOGLOBIN 29.8 pg (27.0-31.0); MEAN CORPUSCULAR HGB CONC 33.5 g/dL (33.0-37.0); MEAN PLATELET VOLUME 9.3 fL (7.2-11.7); MONO # 0.9 K/uL (0.0-0.8); MONO % 12.3 % (0.0-10.0); NEUT # 3.9 K/uL (1.8-7.0); NEUT % 55.5 % (50.0-75.0); NRBC % 0.3 % (0.0-2.0); RBC 4.68 Mil/uL (3.80-5.20); RED CELL DISTRIBUTION WIDTH 14.2 % (11.5-14.5)
[2018-12-02 12:48] LABS: WHITE BLOOD COUNT 7.1 K/uL (4.8-10.8)
[2018-12-02] MEDS: Sodium Chloride 0.9% 1,000 ML IV SCH ×2 (13:00→21:25)
[2018-12-02 13:04] LABS: ALB/GLOB RATIO 1.3 (1.0-2.1); ALBUMIN 4.1 g/dL (3.5-5.0); ALT/SGPT 15 U/L (9-52); AST/SGOT 28 U/L (14-36); BLOOD UREA NITROGEN 15 mg/dL (7-17); CALCIUM 9.5 mg/dl (8.6-10.4); GFR NON-AFRICAN AMERICAN > 60
[2018-12-02] MEDS ORDERED: Sodium Chloride 0.9% 1,000 ML ONE (13:05)
[2018-12-02] MEDS ORDERED: Ciprofloxacin 400mg/200ml D5W 400 MG/200 ML BAG IVPB STA (14:09)
[2018-12-02] MEDS ORDERED: Ciprofloxacin 400mg/200ml D5W 400 MG/200 ML BAG IVPB ONE (14:26)
[2018-12-02] MEDS ORDERED: Albuterol HFA 90 mcg/actuation (8 g) IH PRN (18:00)
[2018-12-02] MEDS: guaiFENesin 200 mg/10 ml Syrup UD PO SCH ×2 (20:06→21:41)
[2018-12-02] MEDS: Albuterol-Ipratrop 3 mg / 0.5 (3 ml) UD INH SCH (20:23)
[2018-12-02] MEDS: Dorzolamide 2% Opht Sol 10ml OD SCH ×2 (20:32→20:38)
[2018-12-02] MEDS: Brimonidine 0.2% Opth Sol (5ml) OD SCH ×2 (20:33→20:37)
[2018-12-02] MEDS: Latanoprost 2.5 ml Opht Soln OD SCH (21:31)
--- NOTE | 2018-12-03 00:02 | CP.PCM.HP ---
Present on Admission - Present on Admission Any Indicators Present on Admission: No Past Patient History - Infectious Disease Hx of Infectious Diseases: None - Tetanus Immunizations Tetanus Immunization: Unknown - Past Medical History & Family History Past Medical History?: Yes - Past Social History Smoking Status: Never Smoked - CARDIAC Hx Hypercholesterolemia: Yes Hx Hypertension: Yes - PULMONARY Hx Asthma: No Hx Bronchitis: Yes Hx Chronic Obstructive Pulmonary Disease (COPD): Yes Hx Emphysema: Yes - NEUROLOGICAL Hx Neurological Disorder: No - HEENT Hx HEENT Problems: Yes Hx Glaucoma: Yes - RENAL Hx Chronic Kidney Disease: No - ENDOCRINE/METABOLIC Hx Endocrine Disorders: No - HEMATOLOGICAL/ONCOLOGICAL Hx Human Immunodeficiency Virus (HIV): No - INTEGUMENTARY Hx Dermatological Problems: No - MUSCULOSKELETAL/RHEUMATOLOGICAL Hx Falls: No - GASTROINTESTINAL Hx Crohn's Disease: No Hx Diverticulitis: No Hx Gall Bladder Disease: No Hx Gastritis: Yes Hx Pancreatitis: No - GENITOURINARY/GYNECOLOGICAL Hx Genitourinary Disorders: No - PSYCHIATRIC Hx Anxiety: Yes Hx Depression: Yes Hx Substance Use: No - SURGICAL HISTORY Hx Surgeries: Yes Hx Hysterectomy: Yes Other/Comment: Hernia surgery;glaucoma surgery L eye - ANESTHESIA Hx Anesthesia: Yes Hx Anesthesia Reactions: No Hx Malignant Hyperthermia: No Meds Allergies/Adverse Reactions: Allergies Allergy/AdvReac Type Severity Reaction Status Date / Time Penicillins Allergy Intermediate RASH Verified 12/02/18 11:04 moxifloxacin HCl AdvReac Intermediate RASH Verified 12/02/18 11:04 [From Avelox] Results - Vital Signs Recent Vital Signs: Last Vital Signs Temp 98.5 F 12/02/18 18:21 Pulse 62 12/02/18 20:24 Resp 20 12/02/18 18:21 BP 154/74 H 12/02/18 18:21 Pulse Ox 98 12/02/18 18:21 - Labs Result Diagrams: 12/02/18 12:32 12/02/18 12:32 Labs: Laboratory Results - last 24 hr 12/02/18 12/02/18 12/02/18 11:28 12:32 12:32 WBC 7.1 D RBC 4.68 Hgb 14.0 Hct 41.7 MCV 89.1 MCH 29.8 MCHC 33.5 RDW 14.2 Plt Count 245 MPV 9.3 Neut % (Auto) 55.5 Lymph % (Auto) 28.8 [place] % (Auto) 12.3 H Eos % (Auto) 2.3 Baso % (Auto) 1.1 Neut # (Auto) 3.9 Lymph # (Auto) 2.0 [place] # (Auto) 0.9 H Eos # (Auto) 0.2 Baso # (Auto) 0.1 Sodium 138 Potassium 4.6 Chloride 105 Carbon Dioxide 29 Anion Gap 10 BUN 15 Creatinine 0.9 Est GFR ( Amer) > 60 Est GFR (Non-Af Amer) > 60 Random Glucose 73 D Calcium 9.5 Total Bilirubin 0.4 AST 28 ALT 15 Alkaline Phosphatase 86 Total Protein 7.1 Albumin 4.1 Globulin 3.1 Albumin/Globulin Ratio 1.3 Urine Color Yellow Urine Clarity Hazy Urine pH 6.0 Ur Specific [place] 1.015 Urine Protein Negative Urine Glucose (UA) Normal Urine Ketones Negative Urine Blood 1+ H Urine Nitrate Positive H Urine Bilirubin Negative Urine Urobilinogen Normal Ur Leukocyte Esterase 3+ H Urine WBC (Auto) 1155 H Urine RBC (Auto) 12 H Urine WBC Clumps (Auto) Occ H Ur Squamous Epith Cells 4 Urine Bacteria Few H
[2018-12-03] MEDS: guaiFENesin 200 mg/10 ml Syrup UD PO SCH ×6 (02:10→21:10)
[2018-12-03] MEDS: Albuterol-Ipratrop 3 mg / 0.5 (3 ml) UD INH SCH ×4 (03:12→19:10)
[2018-12-03] MEDS: Sodium Chloride 0.9% 1,000 ML IV SCH ×2 (08:53→17:40)
--- NOTE | 2018-12-03 09:04 | HP ---
CHIEF COMPLAINT: Lower abdominal pain. HISTORY OF PRESENT ILLNESS: This is a 73-year-old female who has history of anxiety, depression, COPD, hypertension, hyperlipidemia, and osteoporosis. She is a nonsmoker, non-EtOH user, and the patient came in because of lower abdominal pain. She was seen in the ER. She was evaluated, and she is admitted. She has dysuria, frequency, and pyuria. She denies any hematuria. She denies any history of back pain. She has fever, chills, rigors, body aches, tiredness, anorexia, malaise, and fatigue. She denies any history of polyuria, polydipsia, or polyphagia. She denies any history of trauma, fall, or loss of consciousness. She denies any history of chest pain or palpitation. She still has weakness and dizziness. The patient denies any joint pain or hip pains. She denies any tingling, numbness, and paresthesias. She just frequently, and the patient denies any history of skin rash, itchy eyes, or itchy nose. SOCIAL HISTORY: She is nonsmoker, non-EtOH user. PAST MEDICAL HISTORY: Has anxiety, depression, COPD, and glaucoma. CURRENT MEDICATIONS: Prednisone, guaifenesin, , Travatan eye drops, Protonix, dorzolamide, Timoptic eye drops, brimonidine eye drops, Zithromax, DuoNeb, and albuterol HFA. PHYSICAL EXAMINATION: GENERAL: An elderly female in minimal distress. VITAL SIGNS: Blood pressure 154/74, pulse 56, respiratory rate 20, temperature 98.5. SKIN: No rashes. No bruises. No purpura. No petechiae. No ecchymosis. HEENT: Atraumatic and normocephalic. Negative pallor. Negative jaundice. Extraocular movements are intact. NECK: Supple. No JVD. No lymph node. No thyromegaly. No carotid bruit. CHEST WALL: Bilateral symmetrical expansion. No tenderness. LUNGS: Clear. No rales. No rhonchi. CARDIOVASCULAR SYSTEM: S1, S2 regular. No heave. No thrill. ABDOMEN: Soft, nontender. Bowel sounds are positive. RECTAL: No masses. No bleed. GENITAL: Normal. CENTRAL NERVOUS SYSTEM: Awake, alert, and oriented x3. ASSESSMENT: 1. Urinary tract infection. Rule out sepsis. 2. Dehydration. 3. Chronic obstructive pulmonary disease. 4. Anxiety and depression. PLAN: Admit. Detailed orders are written. Seen and examined. Michael Fontaine MD
[2018-12-03] MEDS: Pantoprazole 40 mg EC Tab PO SCH (11:00)
[2018-12-03] MEDS: Enoxaparin 40 mg Syringe SC SCH (11:00)
[2018-12-03] MEDS: Brimonidine 0.2% Opth Sol (5ml) OD SCH ×2 (11:02→17:40)
[2018-12-03] MEDS: Dorzolamide 2% Opht Sol 10ml OD SCH ×2 (11:04→17:38)
[2018-12-03] MEDS: Latanoprost 2.5 ml Opht Soln OD SCH (21:12)
--- NOTE | 2018-12-03 22:50 | CP.PCM.PN ---
Subjective - Date & Time of Evaluation Date of Evaluation: 12/03/18 Time of Evaluation: 07:20 - Subjective Subjective: dictated Objective - Vital Signs/Intake and Output Vital Signs (last 24 hours): Temp Pulse Resp BP Pulse Ox 98.3 F 57 L 20 105/64 99 12/03/18 16:00 12/03/18 16:00 12/03/18 16:00 12/03/18 16:00 12/03/18 16:00 Intake and Output: 12/03/18 12/04/18 18:59 06:59 Intake Total 1280 1150 Balance 1280 1150 - Medications Medications: Current Medications Albuterol (Ventolin Hfa 90 Mcg/Actuation (8 G)) 1 puff IH RQ6 PRN PRN Reason: Shortness of Breath Albuterol/Ipratropium (Duoneb 3 Mg/0.5 Mg (3 Ml) Ud) 3 ml INH RQ6 [facility] Last Admin: 12/03/18 19:10 Dose: 3 ml Brimonidine Tartrate (Alphagan 0.2% Opht) 1 ml OD BID [facility] Last Admin: 12/03/18 17:40 Dose: Not Given Dorzolamide HCl (Trusopt) 1 ml OD BID [facility] Last Admin: 12/03/18 17:38 Dose: 1 drop Enoxaparin Sodium (Lovenox) 40 mg SC DAILY [facility] Last Admin: 12/03/18 11:00 Dose: 40 mg Guaifenesin (Robitussin) 200 mg PO Q4H [facility] Last Admin: 12/03/18 21:10 Dose: Not Given Sodium Chloride (Sodium Chloride 0.9%) 1,000 mls @ 100 mls/hr IV .Q10H [facility] Last Admin: 12/03/18 17:40 Dose: Not Given Ceftriaxone Sodium 1 gm/ (Sodium Chloride) 100 mls @ 100 mls/hr IVPB DAILY [facility]; Protocol Last Admin: 12/03/18 11:00 Dose: 100 mls/hr Influenza Virus Vaccine (Flucelvax Quad [id number] Syr) 60 mcg IM .ONCE ONE Stop: 12/04/18 10:01 Latanoprost (Xalatan Opht) 0 ml OD HS [facility] Last Admin: 12/03/18 21:12 Dose: 2.5 ml Pantoprazole Sodium (Protonix Ec Tab) 40 mg PO DAILY [facility] Last Admin: 12/03/18 11:00 Dose: 40 mg Pneumococcal Polyvalent Vaccine (Pneumovax 23 Vaccine) 0.5 ml IM .ONCE ONE Stop: 12/04/18 10:01 Temazepam (Restoril) 30 mg PO HS PRN PRN Reason: Insomnia Last Admin: 12/03/18 21:12 Dose: 30 mg Timolol Maleate (Timoptic 0.5% Ophth Soln) 0 drop OD BID [facility] Last Admin: 12/03/18 17:38 Dose: 1 drop - Labs Labs: 12/02/18 12:32 12/02/18 12:32
[2018-12-04] MEDS: Albuterol-Ipratrop 3 mg / 0.5 (3 ml) UD INH SCH ×4 (01:30→19:58)
[2018-12-04] MEDS: guaiFENesin 200 mg/10 ml Syrup UD PO SCH ×6 (02:41→21:02)
--- NOTE | 2018-12-04 03:11 | PN ---
DATE: 12/03/2018 SUBJECTIVE: The patient is having some lower abdominal pain. She denies any nausea or vomiting. She denies any distress. She has dysuria. She denies any fever. PHYSICAL EXAMINATION: VITAL SIGNS: Blood pressure 105/64, pulse 57, respiratory rate 20, temperature 98.3. LUNGS: Clear. No rales. No rhonchi. CARDIOVASCULAR SYSTEM: S1 and S2, regular. ABDOMEN: Soft, nontender. Bowel sounds are positive. ASSESSMENT: 1. Lower abdominal pain, rule out diverticulitis. 2. Urinary tract infection. 3. Hypertension. PLAN: Antibiotics, culture. CT of abdomen and pelvis with contrast. Michael Fontaine MD
[2018-12-04] MEDS: Sodium Chloride 0.9% 1,000 ML IV SCH ×2 (07:51→14:23)
[2018-12-04] MEDS ORDERED: Meropenem 500 MG in Sodium Chloride 0.9% 100 ML IVPB ONE ×2 (08:00→08:30)
[2018-12-04 08:09] VITALS: RESP 20
[2018-12-04] MEDS ORDERED: Iohexol 240 (50 ml) PO ONE (08:30)
[2018-12-04] MEDS ORDERED: Iohexol 350mg/ml 100 ML ONE (08:54)
[2018-12-04] MEDS ORDERED: Pneumococcal 23-Valent Vaccine IM ONE (10:00)
[2018-12-04] MEDS ORDERED: Influenza Vaccine 60 mcg/0.5 mL SYR (4YR UP) IM ONE (10:00)
[2018-12-04] MEDS: Pantoprazole 40 mg EC Tab PO SCH (10:29)
[2018-12-04] MEDS: Enoxaparin 40 mg Syringe SC SCH (10:29)
[2018-12-04] MEDS: Dorzolamide 2% Opht Sol 10ml OD SCH ×2 (10:30→17:59)
[2018-12-04] MEDS: Brimonidine 0.2% Opth Sol (5ml) OD SCH ×2 (10:31→18:06)
--- NOTE | 2018-12-04 11:56 | CP.PCM.CON ---
History of Present Illness - History of Present Illness History of Present Illness: INFECTIOUS DISEASE CONSULT; HPI; 73-year-old female with multiple medical problems including COPD,hypertension hypercholesterolemia, osteoporosis, arthritis, bronchitis, gastritis, anxiety who is admitted by the emergency room because of complaints of left lower quadrant pain and left lower back pain for the past one week. Patient states pain radiates from the left low back to the left side of the abdomen and flank. Patient also complains of frequency and dysuria. Denies constipation or any history of melena or diarrhea. Her last bowel movement was this morning. Patient denies fever or chills, nausea or vomiting. Urinalysis was positive for pyuria and urinary leukocytes and nitrites. And appropriate cultures were done. Patient was given IV Rocephin 1 dose and when urine cultures reported positive for ESBL Escherichia coli in the urine patient was given a dose of Merrem IV which she tolerated it without any sequelae. INFECTIOUS DISEASE CONSULTATION REQUESTED BY PMD FOR ESBL POSITIVE-UROSE PSIS/RULE OUT SEPSIS. PATIENT ALSO HAS ALLERGIES NOTED ABOVE BUT SEEMS TO HAVE RESPONDED AND TOLE RATED CEPHALOSPORINS AND CARBAPENEMS. PATIENT DENIES ANY HISTORY OF KIDNEY STONES OR HEMATURIA. PMH: Anxiety, Arthritis, Bronchitis, COPD, Depression, Emphysema, Gastritis, HTN, Hypercholesterolemia, Osteoporosis Denies: Asthma, Crohn's Disease, Diverticulitis, Gall Bladder Disease, HIV, Pancreatitis, Chronic Kidney Disease Surgical History: Endoscopy - [facility] Procedures CATARAC PHACOEMULS/ASPIR (02/13/01) CORONAR ARTERIOGR-2 CATH (02/19/13) ESOPHAGOGASTRODUODENOSCOPY [EGD] W/CLOSED BIOPSY (07/19/14) INSERT LENS AT CATAR EXT (02/13/01) LEFT HEART CARDIAC CATH (02/19/13) LT HEART ANGIOCARDIOGRAM (02/19/13) NEBULIZER THERAPY (02/19/13) Family History: States: Unknown Family Hx - Social History Hx Tobacco Use: No Hx Alcohol Use: No Hx Substance Use: No - Immunization History Hx Tetanus Toxoid Vaccination: No Hx Influenza Vaccination: No Hx Pneumococcal Vaccination: No ALLERGY; PCN., MOXIFLOXACIN .PATIENT TOLERATED DOSE OF CEFTRIAXONE IN THE ER. ALSO PATIENT GOT ONE DOSE OF mERREM PRESCRIBED BY PMD TODAY. Review of Systems - Constitutional Constitutional: Lethargy, Malaise, Weakness. absent: Chills, Fever - EENT Eyes: absent: Change in Vision Nose/Mouth/Throat: absent: Mouth Lesions - Cardiovascular Cardiovascular: absent: Chest Pain, Dyspnea - Respiratory Respiratory: absent: Cough, Hemoptysis - Gastrointestinal Gastrointestinal: Abdominal Pain (LOWER ABDOMINAL PAINS). absent: Constipation, Diarrhea, Nausea, Vomiting - Genitourinary Genitourinary: Dysuria, Urinary Frequency. absent: Freq UTI, Hx Renal/Bladder Calculi - Musculoskeletal Musculoskeletal: Back Pain (LOWER BACK PAIN.) - Neurological Neurological: absent: Headaches, Paresthesias - Psychiatric Psychiatric: Anxiety, Depression - Hematologic/Lymphatic Hematologic: As Per HPI. absent: Easy Bleeding, Easy Bruising, Lymphadenopathy Past Patient History - Infectious Disease Hx of Infectious Diseases: None - Tetanus Immunizations Tetanus Immunization: Unknown - Past Medical History & Family History Past Medical History?: Yes - Past Social History Smoking Status: Never Smoked - CARDIAC Hx Hypercholesterolemia: Yes Hx Hypertension: Yes - PULMONARY Hx Chronic Obstructive Pulmonary Disease (COPD): Yes - NEUROLOGICAL Hx Neurological Disorder: No - HEENT Hx HEENT Problems: Yes Hx Glaucoma: Yes - RENAL Hx Chronic Kidney Disease: No - ENDOCRINE/METABOLIC Hx Endocrine Disorders: No - HEMATOLOGICAL/ONCOLOGICAL Hx Human Immunodeficiency Virus (HIV): No - INTEGUMENTARY Hx Dermatological Problems: No - MUSCULOSKELETAL/RHEUMATOLOGICAL Hx Falls: No - GASTROINTESTINAL Hx Crohn's Disease: No Hx Diverticulitis: No Hx Gall Bladder Disease: No Hx Gastritis: Yes Hx Pancreatitis: No - GENITOURINARY/GYNECOLOGICAL Hx Genitourinary Disorders: No - PSYCHIATRIC Hx Anxiety: Yes Hx Depression: Yes Hx Substance Use: No - SURGICAL HISTORY Hx Surgeries: Yes Hx Hysterectomy: Yes Other/Comment: Hernia surgery;glaucoma surgery L eye - ANESTHESIA Hx Anesthesia: Yes Hx Anesthesia Reactions: No Hx Malignant Hyperthermia: No Meds Allergies/Adverse Reactions: Allergies Allergy/AdvReac Type Severity Reaction Status Date / Time Penicillins Allergy Intermediate RASH Verified 12/02/18 11:04 moxifloxacin HCl AdvReac Intermediate RASH Verified 12/02/18 11:04 [From Avelox] - Medications Medications: Current Medications Albuterol (Ventolin Hfa 90 Mcg/Actuation (8 G)) 1 puff IH RQ6 PRN PRN Reason: Shortness of Breath Albuterol/Ipratropium (Duoneb 3 Mg/0.5 Mg (3 Ml) Ud) 3 ml INH RQ6 [facility] Last Admin: 12/04/18 07:30 Dose: 3 ml Brimonidine Tartrate (Alphagan 0.2% Opht) 1 ml OD BID [facility] Last Admin: 12/04/18 10:31 Dose: 1 drop Dorzolamide HCl (Trusopt) 1 ml OD BID [facility] Last Admin: 12/04/18 10:30 Dose: Not Given Enoxaparin Sodium (Lovenox) 40 mg SC DAILY [facility] Last Admin: 12/04/18 10:29 Dose: 40 mg Guaifenesin (Robitussin) 200 mg PO Q4H [facility] Last Admin: 12/04/18 10:31 Dose: Not Given Sodium Chloride (Sodium Chloride 0.9%) 1,000 mls @ 100 mls/hr IV .Q10H [facility] Last Admin: 12/04/18 07:51 Dose: Not Given Latanoprost (Xalatan Opht) 0 ml OD HS [facility] Last Admin: 12/03/18 21:12 Dose: 2.5 ml Pantoprazole Sodium (Protonix Ec Tab) 40 mg PO DAILY [facility] Last Admin: 12/04/18 10:29 Dose: 40 mg Temazepam (Restoril) 30 mg PO HS PRN PRN Reason: Insomnia Last Admin: 12/03/18 21:12 Dose: 30 mg Timolol Maleate (Timoptic 0.5% Ophth Soln) 0 drop OD BID [facility] Last Admin: 12/04/18 10:30 Dose: Not Given Physical Exam - Constitutional Appears: No Acute Distress - Head Exam Head Exam: NORMAL INSPECTION - Eye Exam Eye Exam: EOMI, PERRL - ENT Exam ENT Exam: Normal Oropharynx - Neck Exam Neck exam: Positive for: Normal Inspection - Respiratory Exam Respiratory Exam: Clear to Auscultation Bilateral, NORMAL BREATHING PATTERN - Cardiovascular Exam Cardiovascular Exam: REGULAR RHYTHM, +S1, +S2 - GI/Abdominal Exam GI & Abdominal Exam: Normal Bowel Sounds, Soft, Tenderness (LEFT LOW QUADRANT AND LEFT FLANK.). absent: Guarding - Extremities Exam Extremities exam: Positive for: normal capillary refill, pedal pulses present. Negative for: calf tenderness, pedal edema - Neurological Exam Neurological exam: Alert, CN II-XII Intact, Normal Gait, Oriented x3, Reflexes Normal - Skin Skin Exam: Normal Color, Warm Results - Vital Signs Recent Vital Signs: Last Vital Signs Temp 97.8 F 12/04/18 08:04 Pulse 78 12/04/18 08:04 Resp 20 12/04/18 08:04 BP 131/71 12/04/18 08:04 Pulse Ox 97 12/04/18 08:04 - Labs Result Diagrams: 12/02/18 12:32 12/02/18 12:32 - Imaging and Cardiology CT scan - abdomenAND PELVIS Status: Report reviewed by me Assessment & Plan (1) UTI (urinary tract infection) Status: Acute (2) Abdominal pain Status: Acute (3) Bladder pain Status: Acute (4) Anxiety Status: Acute (5) Emphysema lung Status: Acute - Assessment and Plan (Free Text) Plan: PLAN; PANCULTURES. CONTINUE iv MERREM 500 MG iv PIGGYBACK EVERY 8 HOURLY 12/04/18. FOR POSITIVE ESBL E. COLI IN THE URINE. MONITOR PATIENT FOR ANY SKIN RASHES OR SIDE EFFECTS FROM PRESENT ANTIBIOTICS. FOLLOW-UP BLOOD CULTURES TO ADJUST ANTIBIOTICS. WILL FOLLOW ALONG WITH YOU AND MAKE FURTHER RECOMMENDATIONS NEEDED.
--- NOTE | 2018-12-04 14:50 | CT ---
Date of service: 12/04/2018 PROCEDURE: CT Abdomen and Pelvis with contrast HISTORY: pain abdomen, diverticultis COMPARISON: Not available TECHNIQUE: Contrast dose: 100 mL Omnipaque 350 Radiation dose: Total exam DLP = 609.74 mGy-cm. This CT exam was performed using one or more of the following dose reduction techniques: Automated exposure control, adjustment of the mA and/or kV according to patient size, and/or use of iterative reconstruction technique. FINDINGS: LOWER THORAX: Unremarkable. LIVER: Unremarkable. No gross lesion or ductal dilatation. GALLBLADDER AND BILE DUCTS: Unremarkable. PANCREAS: Unremarkable. No gross lesion or ductal dilatation. SPLEEN: Unremarkable. ADRENALS: Unremarkable. No mass. KIDNEYS AND URETERS: Unremarkable. No hydronephrosis. No solid mass. VASCULATURE: Unremarkable. No aortic aneurysm. There is atherosclerotic calcification of the abdominal aorta. BOWEL: There is sigmoid diverticulosis. There is no evidence of diverticulitis. There is no bowel obstruction. There are no other abnormal bowel loops identified. There is no significant retained fecal matter. APPENDIX: Normal appendix. PERITONEUM: Unremarkable. No free fluid. No free air. LYMPH NODES: Unremarkable. No enlarged lymph nodes. BLADDER: Unremarkable. REPRODUCTIVE: Status post hysterectomy BONES: Mild lumbar dextroscoliosis OTHER FINDINGS: None. IMPRESSION: Sigmoid diverticulosis without evidence of diverticulitis. No other significant abnormality.
[2018-12-04] MEDS: Meropenem 500 MG in Sodium Chloride 0.9% 100 ML IVPB SCH (17:58)
--- NOTE | 2018-12-04 21:55 | CP.PCM.PN ---
Subjective - Date & Time of Evaluation Date of Evaluation: 12/04/18 Time of Evaluation: 07:20 - Subjective Subjective: dictated Objective - Vital Signs/Intake and Output Vital Signs (last 24 hours): Temp Pulse Resp BP Pulse Ox 97.4 F L 66 20 95/56 L 97 12/04/18 16:00 12/04/18 16:00 12/04/18 16:00 12/04/18 16:00 12/04/18 16:00 Intake and Output: 12/04/18 12/05/18 18:59 06:59 Intake Total 2950 Balance 2950 - Medications Medications: Current Medications Albuterol (Ventolin Hfa 90 Mcg/Actuation (8 G)) 1 puff IH RQ6 PRN PRN Reason: Shortness of Breath Albuterol/Ipratropium (Duoneb 3 Mg/0.5 Mg (3 Ml) Ud) 3 ml INH RQ6 [facility] Last Admin: 12/04/18 19:58 Dose: 3 ml Brimonidine Tartrate (Alphagan 0.2% Opht) 1 ml OD BID [facility] Last Admin: 12/04/18 18:06 Dose: Not Given Dorzolamide HCl (Trusopt) 1 ml OD BID [facility] Last Admin: 12/04/18 17:59 Dose: 1 drop Enoxaparin Sodium (Lovenox) 40 mg SC DAILY [facility] Last Admin: 12/04/18 10:29 Dose: 40 mg Guaifenesin (Robitussin) 200 mg PO Q4H [facility] Last Admin: 12/04/18 21:02 Dose: Not Given Sodium Chloride (Sodium Chloride 0.9%) 1,000 mls @ 100 mls/hr IV .Q10H [facility] Last Admin: 12/04/18 14:23 Dose: Not Given Meropenem 500 mg/ Sodium (Chloride) 100 mls @ 100 mls/hr IVPB Q8H [facility]; Protocol Last Admin: 12/04/18 17:58 Dose: 100 mls/hr Latanoprost (Xalatan Opht) 0 ml OD HS [facility] Last Admin: 12/03/18 21:12 Dose: 2.5 ml Pantoprazole Sodium (Protonix Ec Tab) 40 mg PO DAILY [facility] Last Admin: 12/04/18 10:29 Dose: 40 mg Temazepam (Restoril) 30 mg PO HS PRN PRN Reason: Insomnia Last Admin: 12/03/18 21:12 Dose: 30 mg Timolol Maleate (Timoptic 0.5% Ophth Soln) 0 drop OD BID [facility] Last Admin: 12/04/18 18:06 Dose: 1 drop - Labs Labs: 12/02/18 12:32 12/02/18 12:32
[2018-12-04] MEDS: Latanoprost 2.5 ml Opht Soln OD SCH (22:14)
--- NOTE | 2018-12-05 | PN ---
DATE: 12/04/2018 SUBJECTIVE: The patient has urine culture ESBL positive E. coli which is multidrug resistant. She is afebrile. No shortness of breath. No nausea or vomiting. CT of the abdomen and pelvis is pending. The patient is started on Zosyn. No fever. The patient's CT of the abdomen is positive for diverticulosis. PHYSICAL EXAMINATION: VITAL SIGNS: Blood pressure is 95/66, pulse 66, respiratory rate 20, and temperature 97.4. LUNGS: Bilaterally clear. No rales. No rhonchi. CARDIOVASCULAR SYSTEM: S1, S2. Regular. ABDOMEN: Soft, nontender. Bowel sounds are positive. ASSESSMENT: 1. Urinary tract infection with multidrug resistant extended-spectrum beta-lactamase positive Escherichia coli. 2. Dehydration. PLAN: Continue Zosyn. Monitor the patient. Repeat urine cultures. Michael Fontaine MD
[2018-12-05] MEDS: Meropenem 500 MG in Sodium Chloride 0.9% 100 ML IVPB SCH ×3 (00:22→17:23)
[2018-12-05] MEDS: Sodium Chloride 0.9% 1,000 ML IV SCH ×2 (00:25→09:52)
[2018-12-05] MEDS: Albuterol-Ipratrop 3 mg / 0.5 (3 ml) UD INH SCH ×5 (01:13→19:19)
[2018-12-05] MEDS: guaiFENesin 200 mg/10 ml Syrup UD PO SCH ×6 (01:33→21:52)
[2018-12-05 07:31] LABS: BLOOD UREA NITROGEN 13 mg/dL (7-17); CALCIUM 8.5 mg/dl (8.6-10.4); GFR NON-AFRICAN AMERICAN > 60
[2018-12-05 07:33] LABS: BASO % 0.6 % (0.0-2.0); EOS # 0.2 K/uL (0.0-0.7); EOS % 2.1 % (0.0-4.0); LYMPH # 2.4 K/uL (1.0-4.3); LYMPH % 33.5 % (20.0-40.0); MEAN CELL VOLUME 88.7 fL (81.0-99.0); MEAN CORPUSCULAR HEMOGLOBIN 30.4 pg (27.0-31.0); MEAN CORPUSCULAR HGB CONC 34.3 g/dL (33.0-37.0); MEAN PLATELET VOLUME 8.6 fL (7.2-11.7); MONO # 0.7 K/uL (0.0-0.8); MONO % 9.7 % (0.0-10.0); NEUT # 3.9 K/uL (1.8-7.0); NEUT % 54.1 % (50.0-75.0); NRBC % 0.3 % (0.0-2.0); RBC 4.27 Mil/uL (3.80-5.20); WHITE BLOOD COUNT 7.3 K/uL (4.8-10.8)
[2018-12-05] MEDS: Enoxaparin 40 mg Syringe SC SCH (09:47)
[2018-12-05] MEDS: Brimonidine 0.2% Opth Sol (5ml) OD SCH ×2 (09:48→17:22)
[2018-12-05] MEDS: Pantoprazole 40 mg EC Tab PO SCH (09:48)
[2018-12-05] MEDS: Dorzolamide 2% Opht Sol 10ml OD SCH ×2 (09:50→17:26)
[2018-12-05] MEDS ORDERED: Aluminum Hydroxide/Magnesium Hydroxide Susp (30 mL) PO PRN (11:50)
--- NOTE | 2018-12-05 16:23 | CP.PCM.PN ---
Subjective - Date & Time of Evaluation Date of Evaluation: 12/05/18 Time of Evaluation: 16:23 - Subjective Subjective: AFEBRILE, C/O LT LOWER ABDOMINAL PAIN ON IV ANTIBIOTICS. patient tolerating IV Merrem without any reactions. LABS ; rEVIEWED blood cultures -ve to date. Objective - Vital Signs/Intake and Output Vital Signs (last 24 hours): Temp Pulse Resp BP Pulse Ox 97.9 F 85 20 117/69 97 12/05/18 08:50 12/05/18 08:50 12/05/18 08:50 12/05/18 08:50 12/05/18 08:50 Intake and Output: 12/05/18 12/05/18 06:59 18:59 Intake Total 2140 1040 Balance 2140 1040 - Medications Medications: Current Medications Al Hydrox/Mg Hydrox/Simethicone (Maalox 30 Ml) 30 ml PO QID PRN PRN Reason: Indigestion / Heartburn Albuterol (Ventolin Hfa 90 Mcg/Actuation (8 G)) 1 puff IH RQ6 PRN PRN Reason: Shortness of Breath Albuterol/Ipratropium (Duoneb 3 Mg/0.5 Mg (3 Ml) Ud) 3 ml INH RQ6 [facility] Last Admin: 12/05/18 13:30 Dose: 3 ml Brimonidine Tartrate (Alphagan 0.2% Opht) 1 ml OD BID [facility] Last Admin: 12/05/18 09:48 Dose: 1 drop Dorzolamide HCl (Trusopt) 1 ml OD BID [facility] Last Admin: 12/05/18 09:50 Dose: 1 drop Enoxaparin Sodium (Lovenox) 40 mg SC DAILY [facility] Last Admin: 12/05/18 09:47 Dose: 40 mg Guaifenesin (Robitussin) 200 mg PO Q4H [facility] Last Admin: 12/05/18 13:22 Dose: 200 mg Meropenem 500 mg/ Sodium (Chloride) 100 mls @ 100 mls/hr IVPB Q8H [facility]; Protocol Last Admin: 12/05/18 08:37 Dose: 100 mls/hr Latanoprost (Xalatan Opht) 0 ml OD HS [facility] Last Admin: 12/04/18 22:14 Dose: 2.5 ml Pantoprazole Sodium (Protonix Ec Tab) 40 mg PO DAILY [facility] Last Admin: 12/05/18 09:48 Dose: 40 mg Temazepam (Restoril) 30 mg PO HS PRN PRN Reason: Insomnia Last Admin: 12/04/18 22:16 Dose: 30 mg Timolol Maleate (Timoptic 0.5% Ophth Soln) 0 drop OD BID [facility] Last Admin: 12/05/18 09:49 Dose: 1 drop - Labs Labs: 12/05/18 07:13 12/05/18 07:13 - Constitutional Appears: No Acute Distress - Head Exam Head Exam: NORMAL INSPECTION - Eye Exam Eye Exam: EOMI, PERRL - ENT Exam ENT Exam: Normal Oropharynx - Neck Exam Neck Exam: Normal Inspection - Cardiovascular Exam Cardiovascular Exam: REGULAR RHYTHM, +S1, +S2 - GI/Abdominal Exam GI & Abdominal Exam: Soft, Tenderness (LEFT FLANK, LEFT LOWER QUADRANT), Normal Bowel Sounds - Extremities Exam Extremities Exam: Normal Capillary Refill. absent: Calf Tenderness, Pedal Edema - Neurological Exam Neurological Exam: Alert, Awake, CN II-XII Intact, Oriented x3 - Psychiatric Exam Psychiatric exam: Normal Mood - Skin Skin Exam: Normal Color, Warm Assessment and Plan (1) UTI (urinary tract infection) Status: Acute (2) Abdominal pain Status: Acute (3) Bladder pain Status: Acute (4) Anxiety Status: Acute (5) Emphysema lung Status: Acute - Assessment and Plan (Free Text) Plan: CONTINUE iv MERREM 500 MG iv PIGGYBACK EVERY 8 HOURLY 12/04/18. FOR POSITIVE ESBL E. COLI IN THE URINE. MONITOR PATIENT FOR ANY SKIN RASHES OR SIDE EFFECTS FROM PRESENT ANTIBIOTICS. FOLLOW-UP BLOOD CULTURES TO ADJUST ANTIBIOTICS.
--- NOTE | 2018-12-05 21:51 | CP.PCM.PN ---
Subjective - Date & Time of Evaluation Date of Evaluation: 12/05/18 Time of Evaluation: 07:00 - Subjective Subjective: dictated Objective - Vital Signs/Intake and Output Vital Signs (last 24 hours): Temp Pulse Resp BP Pulse Ox 97.5 F L 74 20 108/68 97 12/05/18 15:00 12/05/18 15:00 12/05/18 15:00 12/05/18 15:00 12/05/18 15:00 Intake and Output: 12/05/18 12/06/18 18:59 06:59 Intake Total 1040 Balance 1040 - Medications Medications: Current Medications Al Hydrox/Mg Hydrox/Simethicone (Maalox 30 Ml) 30 ml PO QID PRN PRN Reason: Indigestion / Heartburn Albuterol (Ventolin Hfa 90 Mcg/Actuation (8 G)) 1 puff IH RQ6 PRN PRN Reason: Shortness of Breath Albuterol/Ipratropium (Duoneb 3 Mg/0.5 Mg (3 Ml) Ud) 3 ml INH RQ6 [facility] Last Admin: 12/05/18 19:19 Dose: 3 ml Brimonidine Tartrate (Alphagan 0.2% Opht) 1 ml OD BID [facility] Last Admin: 12/05/18 17:22 Dose: 1 drop Dorzolamide HCl (Trusopt) 1 ml OD BID [facility] Last Admin: 12/05/18 17:26 Dose: 1 drop Enoxaparin Sodium (Lovenox) 40 mg SC DAILY [facility] Last Admin: 12/05/18 09:47 Dose: 40 mg Guaifenesin (Robitussin) 200 mg PO Q4H [facility] Last Admin: 12/05/18 17:25 Dose: 200 mg Meropenem 500 mg/ Sodium (Chloride) 100 mls @ 100 mls/hr IVPB Q8H [facility]; Protocol Last Admin: 12/05/18 17:23 Dose: 100 mls/hr Latanoprost (Xalatan Opht) 0 ml OD HS [facility] Last Admin: 12/04/18 22:14 Dose: 2.5 ml Pantoprazole Sodium (Protonix Ec Tab) 40 mg PO DAILY [facility] Last Admin: 12/05/18 09:48 Dose: 40 mg Temazepam (Restoril) 30 mg PO HS PRN PRN Reason: Insomnia Last Admin: 12/04/18 22:16 Dose: 30 mg Timolol Maleate (Timoptic 0.5% Oph Soln) 0 drop OD BID [facility] Last Admin: 12/05/18 17:26 Dose: 1 drop - Labs Labs: 12/05/18 07:13 12/05/18 07:13
[2018-12-05] MEDS: Latanoprost 2.5 ml Opht Soln OD SCH (21:54)
[2018-12-06] MEDS: Meropenem 500 MG in Sodium Chloride 0.9% 100 ML IVPB SCH ×3 (00:01→17:18)
[2018-12-06] MEDS: Albuterol-Ipratrop 3 mg / 0.5 (3 ml) UD INH SCH ×4 (01:11→13:15)
--- NOTE | 2018-12-06 01:46 | PN ---
DATE: 12/05/2018 SUBJECTIVE: Rosalva Guerrero has less abdominal pain, less nausea, less vomiting, less dizziness, less polyuria and polydipsia. PHYSICAL EXAMINATION: VITAL SIGNS: Blood pressure is 108/68, pulse 74, respiratory rate 20, temperature 97.5. LUNGS: Clear. CARDIOVASCULAR SYSTEM: S1 and S2, regular. ABDOMEN: Soft. ASSESSMENT: 1. Urinary tract infection. The patient has urinary tract infection with Escherichia coli which is multidrug resistant with extended-spectrum beta-lactamase positive. 2. Dehydration. PLAN: Continue antibiotics. Monitor the patient. Michael Fontaine MD
[2018-12-06] MEDS: guaiFENesin 200 mg/10 ml Syrup UD PO SCH ×4 (02:00→14:59)
[2018-12-06] MEDS: Enoxaparin 40 mg Syringe SC SCH (10:00)
[2018-12-06] MEDS: Pantoprazole 40 mg EC Tab PO SCH (10:00)
[2018-12-06] MEDS: Brimonidine 0.2% Opth Sol (5ml) OD SCH (10:01)
[2018-12-06] MEDS: Dorzolamide 2% Opht Sol 10ml OD SCH (10:03)
[2018-12-06 11:43] LABS: URINE BILIRUBIN NEGATIVE (NEGATIVE); URINE CLARITY Clear (Clear); URINE COLOR Straw (YELLOW); URINE GLUCOSE (UA) NORMAL (Normal); URINE LEUKOCYTE ESTERASE NEG Leu/uL (Negative); URINE PROTEIN NEGATIVE (NEGATIVE); URINE UROBILINOGEN NORMAL mg/dL (0.2-1.0)
[2018-12-06 11:48] LABS: URINE BLOOD TRACE (NEGATIVE)
[2018-12-06 15:47] VITALS: BP 129/73; PULSE 60; TEMP 98.1; O2SAT 100
[2018-12-06] MEDS ORDERED: Influenza Vaccine 60 mcg/0.5 mL SYR (4YR UP) IM ONE (16:23)
[2018-12-06] MEDS ORDERED: Pneumococcal 23-Valent Vaccine IM ONE (16:23)
--- NOTE | 2018-12-06 17:00 | CP.PCM.PN ---
Subjective - Date & Time of Evaluation Date of Evaluation: 12/06/18 Time of Evaluation: 16:59 - Subjective Subjective: alert, oriented, denies sob or abdominal pain, NAD. Objective - Vital Signs/Intake and Output Vital Signs (last 24 hours): Temp Pulse Resp BP Pulse Ox 98.1 F 60 20 129/73 100 12/06/18 15:00 12/06/18 15:00 12/06/18 15:00 12/06/18 15:00 12/06/18 15:00 Intake and Output: 12/06/18 12/06/18 06:59 18:59 Intake Total 240 600 Balance 240 600 - Medications Medications: Current Medications Al Hydrox/Mg Hydrox/Simethicone (Maalox 30 Ml) 30 ml PO QID PRN PRN Reason: Indigestion / Heartburn Albuterol (Ventolin Hfa 90 Mcg/Actuation (8 G)) 1 puff IH RQ6 PRN PRN Reason: Shortness of Breath Albuterol/Ipratropium (Duoneb 3 Mg/0.5 Mg (3 Ml) Ud) 3 ml INH RQ6 [facility] Last Admin: 12/06/18 13:15 Dose: 3 ml Brimonidine Tartrate (Alphagan 0.2% Opht) 1 ml OD BID [facility] Last Admin: 12/06/18 10:01 Dose: 1 drop Dorzolamide HCl (Trusopt) 1 ml OD BID [facility] Last Admin: 12/06/18 10:03 Dose: 1 drop Enoxaparin Sodium (Lovenox) 40 mg SC DAILY [facility] Last Admin: 12/06/18 10:00 Dose: 40 mg Guaifenesin (Robitussin) 200 mg PO Q4H [facility] Last Admin: 12/06/18 14:59 Dose: 200 mg Meropenem 500 mg/ Sodium (Chloride) 100 mls @ 100 mls/hr IVPB Q8H [facility]; Protocol Last Admin: 12/06/18 09:53 Dose: 100 mls/hr Latanoprost (Xalatan Opht) 0 ml OD HS [facility] Last Admin: 12/05/18 21:54 Dose: 1 ml Pantoprazole Sodium (Protonix Ec Tab) 40 mg PO DAILY [facility] Last Admin: 12/06/18 10:00 Dose: 40 mg Temazepam (Restoril) 30 mg PO HS PRN PRN Reason: Insomnia Last Admin: 12/05/18 21:52 Dose: 30 mg Timolol Maleate (Timoptic 0.5% Ophth Soln) 0 drop OD BID [facility] Last Admin: 12/06/18 10:02 Dose: 1 drop - Labs Labs: 12/05/18 07:13 12/05/18 07:13 Assessment and Plan - Assessment and Plan (Free Text) Assessment: 73 year old female with UTI, seen and examined. Alert and orientedx3, ambulatory , denies any pain or dysuria. Discussed with DR Fontaine, plan to discharge home on macrobid anf follow up in the office in 1 week
--- NOTE | 2018-12-06 19:01 | CP.PCM.DIS ---
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 Referral Routine Comment: Physician Instructions: Reason For Exam: History of COPD 12/04/18 06:47 Infectious Disease Consult Routine Comment: Consulting Provider: Usha Martinez Consulting Physician: Usha Martinez Reason for Consult: ESBL in the urine Time Spent in preparation of Discharge (in minutes): 30 Hospital Course - Lab Results Lab Results: Micro Results 12/02/18 12:15 Blood Blood Culture - Preliminary NO GROWTH AFTER 4 DAYS 12/02/18 12:59 Blood Blood Culture - Preliminary NO GROWTH AFTER 4 DAYS 12/02/18 12:07 Urine,Clean Catch Urine Culture - Final Escherichia Coli Most Recent Lab Values WBC 7.3 K/uL (4.8-10.8) 12/05/18 07:13 RBC 4.27 Mil/uL (3.80-5.20) 12/05/18 07:13 Hgb 13.0 g/dL (11.0-16.0) 12/05/18 07:13 Hct 37.9 % (34.0-47.0) 12/05/18 07:13 MCV 88.7 fL (81.0-99.0) 12/05/18 07:13 MCH 30.4 pg (27.0-31.0) 12/05/18 07:13 MCHC 34.3 g/dL (33.0-37.0) 12/05/18 07:13 RDW 14.0 % (11.5-14.5) 12/05/18 07:13 Plt Count 210 K/uL (130-400) 12/05/18 07:13 MPV 8.6 fL (7.2-11.7) 12/05/18 07:13 Neut % (Auto) 54.1 % (50.0-75.0) 12/05/18 07:13 Lymph % (Auto) 33.5 % (20.0-40.0) 12/05/18 07:13 [place] % (Auto) 9.7 % (0.0-10.0) 12/05/18 07:13 Eos % (Auto) 2.1 % (0.0-4.0) 12/05/18 07:13 Baso % (Auto) 0.6 % (0.0-2.0) 12/05/18 07:13 Neut # (Auto) 3.9 K/uL (1.8-7.0) 12/05/18 07:13 Lymph # (Auto) 2.4 K/uL (1.0-4.3) 12/05/18 07:13 [place] # (Auto) 0.7 K/uL (0.0-0.8) 12/05/18 07:13 Eos # (Auto) 0.2 K/uL (0.0-0.7) 12/05/18 07:13 Baso # (Auto) 0.0 K/uL (0.0-0.2) 12/05/18 07:13 Sodium 138 mmol/L (132-148) 12/05/18 07:13 Potassium 4.1 mmol/L (3.6-5.2) 12/05/18 07:13 Chloride 108 mmol/L (98-107) H 12/05/18 07:13 Carbon Dioxide 27 mmol/L (22-30) 12/05/18 07:13 Anion Gap 7 (10-20) L 12/05/18 07:13 BUN 13 mg/dL (7-17) 12/05/18 07:13 Creatinine 0.8 mg/dL (0.7-1.2) 12/05/18 07:13 Est GFR ( Amer) > 60 12/05/18 07:13 Est GFR (Non-Af Amer) > 60 12/05/18 07:13 Random Glucose 88 mg/dL (65-105) D 12/05/18 07:13 Calcium 8.5 mg/dl (8.6-10.4) L 12/05/18 07:13 Total Bilirubin 0.4 mg/dL (0.2-1.3) 12/02/18 12:32 AST 28 U/L (14-36) 12/02/18 12:32 ALT 15 U/L (9-52) 12/02/18 12:32 Alkaline Phosphatase 86 U/L (38-126) 12/02/18 12:32 Total Protein 7.1 g/dL (6.3-8.3) 12/02/18 12:32 Albumin 4.1 g/dL (3.5-5.0) 12/02/18 12:32 Globulin 3.1 gm/dL (2.2-3.9) 12/02/18 12:32 Albumin/Globulin Ratio 1.3 (1.0-2.1) 12/02/18 12:32 Urine Color Straw (YELLOW) 12/06/18 11:36 Urine Clarity Clear (Clear) 12/06/18 11:36 Urine pH 7.0 (5.0-8.0) 12/06/18 11:36 Ur Specific [place] 1.006 (1.003-1.030) 12/06/18 11:36 Urine Protein Negative mg/dL (NEGATIVE) 12/06/18 11:36 Urine Glucose (UA) Normal mg/dL (Normal) 12/06/18 11:36 Urine Ketones Negative mg/dL (NEGATIVE) 12/06/18 11:36 Urine Blood Trace (NEGATIVE) 12/06/18 11:36 Urine Nitrate Negative (NEGATIVE) 12/06/18 11:36 Urine Bilirubin Negative (NEGATIVE) 12/06/18 11:36 Urine Urobilinogen Normal mg/dL (0.2-1.0) 12/06/18 11:36 Ur Leukocyte Esterase Neg Deirdre/uL (Negative) 12/06/18 11:36 Urine WBC (Auto) 1 /hpf (0-5) 12/06/18 11:36 Urine RBC (Auto) 1 /hpf (0-3) 12/06/18 11:36 Urine WBC Clumps (Auto) Occ /hpf (NONE) H 12/02/18 11:28 Ur Squamous Epith Cells 4 /hpf (0-5) 12/02/18 11:28 Urine Bacteria Few (<OCC) H 12/02/18 11:28 Discharge Exam - Head Exam Head Exam: NORMAL INSPECTION Discharge Plan - Discharge Medications Prescriptions: Nitrofurantoin Monohyd/M-Cryst [Macrobid 100 mg Capsule] 100 mg PO BID #14 capsule - Follow Up Plan Condition: GOOD Disposition: HOME/ ROUTINE Instructions: Urinary Tract Infection in Women (DC) Additional Instructions: FOLLOW UP WITH Primary Doctor IN 1 WEEK MACROBID 100MG PO BID X7 DAYS FOR UTI
--- NOTE | 2018-12-07 05:27 | DS ---
DISCHARGE DIAGNOSES: 1. Multidrug resistance urinary tract infection. 2. Dehydration. HISTORY OF PRESENT ILLNESS: This is a 73-year-old female with history of abdominal pain, nausea, vomiting, found to have urinary tract infection, which was ESBL positive E. coli, sensitive to Merrem. The patient underwent Merrem. She is afebrile and she is feeling better. Abdominal pain is gone. She is for discharge. CONDITION UPON DISCHARGE: Stable. PHYSICAL EXAMINATION: LUNGS: Clear. ABDOMEN: Soft, nontender. Bowel sounds are positive. CT of the abdomen is negative. The patient is being discharged. Outpatient followup. Michael Fontaine MD
== END 2018-12-06 18:55 | disposition home or self-care (01) | DRG 690 ==
LOC: C.ER 10:39 → C.9E 14:11 → C.3T 16:41 → OBSVTOIN 12-04 11:53 → C.3T 12-04 21:16
PROVIDERS: ADMIT Internal Medicine; ATTEND Internal Medicine
DX: N39.0 Urinary tract infection, site not specified (principal); K57.90 Diverticulosis of intestine, part unspecified, without perforation or abscess without bleeding; J44.9 Chronic obstructive pulmonary disease, unspecified; Z16.24 Resistance to multiple antibiotics; J43.9 Emphysema, unspecified; F41.9 Anxiety disorder, unspecified; I10 Essential (primary) hypertension; E86.0 Dehydration; E78.00 Pure hypercholesterolemia, unspecified; F32.9 Major depressive disorder, single episode, unspecified; E78.5 Hyperlipidemia, unspecified

== ENCOUNTER 2019-02-11 11:21 | Emergency (ER) | payer MEDICARE ==
[2019-02-11 11:22] VITALS: BMI 24.7
[2019-02-11 11:45] VITALS: O2SAT 94
--- NOTE | 2019-02-11 11:46 | C.PDOC ---
History Of Present Illness 73 year old female presents to the emergency department with complaints of posterior head pain and lower back pain status-post falling yesterday. Patient states that she was sitting down in her wheelchair, and was startled after hearing the phone ring and fell backwards. Patient reports hitting her head and lower back. Patient states that the injury occurred at 4PM; she reports taking Advil at the time but the pain became worse at 1AM. She reports calling her daughter this morning stating that the pain wasn't improving so she presented to the ED. Patient denies altered mental status, LOC, visual disturbances, dizziness, weakness, cp, sob, nausea, vomiting, and other injuries. Of note, patient has a history of right leg fracture in [place] and has a right leg surgical shoe in place. - HPI Time Seen by Provider: 02/11/19 11:42 Chief Complaint (Nursing): Trauma History Per: Patient, Family (daughter) History/Exam Limitations: no limitations Onset/Duration Of Symptoms: Days (18), Worse Since Injury Occurred (Timing): Days Ago: (18) Location Of Injury: Posterior: Back (lower), Head - Fall Fall:Prior To Injury: Lost Balance Past Medical History Reviewed: Historical Data, Nursing Documentation, Vital Signs Vital Signs: Last Vital Signs Temp 98.9 F 02/11/19 11:27 Pulse 56 L 02/11/19 11:27 Resp 18 02/11/19 11:27 BP 108/61 02/11/19 11:27 Pulse Ox 94 L 02/11/19 11:27 Primary Care Provider: Sanjiv David - Medical History PMH: Anxiety, Arthritis, Bronchitis, COPD, Depression, Emphysema, Gastritis, HTN, Hypercholesterolemia, Osteoporosis Denies: Asthma, Crohn's Disease, Diverticulitis, Gall Bladder Disease, HIV, Pancreatitis, Chronic Kidney Disease Surgical History: Endoscopy - [facility] Procedures CATARAC PHACOEMULS/ASPIR (02/13/01) CORONAR ARTERIOGR-2 CATH (02/19/13) ESOPHAGOGASTRODUODENOSCOPY [EGD] W/CLOSED BIOPSY (07/19/14) INSERT LENS AT CATAR EXT (02/13/01) LEFT HEART CARDIAC CATH (02/19/13) LT HEART ANGIOCARDIOGRAM (02/19/13) NEBULIZER THERAPY (02/19/13) Family History: States: No Known Family Hx - Social History Hx Tobacco Use: No Hx Alcohol Use: No Hx Substance Use: No - Immunization History Hx Tetanus Toxoid Vaccination: No Hx Influenza Vaccination: No Hx Pneumococcal Vaccination: No Review Of Systems Constitutional: Negative for: Fever, Chills, Weakness Cardiovascular: Negative for: Chest Pain Respiratory: Negative for: Cough, Shortness of Breath Gastrointestinal: Negative for: Nausea, Vomiting, Abdominal Pain, Diarrhea Musculoskeletal: Positive for: Back Pain (lower), Other (head pain) Neurological: Negative for: Weakness, Numbness, Altered Mental Status, Dizziness Physical Exam - Physical Exam Appears: Non-toxic, No Acute Distress Skin: Normal Color, Warm, Dry, No Ecchymosis, No Other (erythema) Head: Normacephalic, Tenderness (slight tenderness to palpation at the occipital scalp), No Abrasion, No Laceration Eye(s): right: Normal Inspection, left: Other (left pupil deviated medially, s/p 3 surgeries for cataract and glaucoma. left eye 20/200, right eye 20/30, bilateral 20/50 vision.) Ear(s): Bilateral: Normal Nose: Normal Oral Mucosa: Moist Tongue: Normal Appearing Lips: Normal Appearing Throat: Normal, No Erythema, No Exudate Neck: Normal ROM, Supple Chest: Symmetrical, No Tenderness Cardiovascular: Rhythm Regular, No Murmur Respiratory: Normal Breath Sounds, No Accessory Muscle Use Gastrointestinal/Abdominal: Soft, No Tenderness, No Guarding, No Rebound Back: No CVA Tenderness, Vertebral Tenderness (sacrally) Extremity: Normal ROM, No Pedal Edema, Capillary Refill <2 Sec Neurological/Psych: Oriented x3, Normal Speech, Normal Cognition, Normal Sensation Gait: With Assistance (wheelchair) ED Course And Treatment O2 Sat by Pulse Oximetry: 94 (RA) - Other Rad XR L-Spine X-Ray: Viewed By Me, Read By Radiologist Interpretation: Date of service: 02/11/2019. PROCEDURE: Radiographs of the Lumbar Spine. HISTORY: Status post fall. COMPARISON: Comparison made with prior CT scan of the abdomen and pelvis 12/04/2018 which image the lumbar spine in 3 planes. TECHNIQUE: 5 views obtained. FINDINGS: BONES: No acute compression fractures nor retropulsed fragments. There is a moderate scoliotic deformity convex right centered at the thoracolumbar junction. DISC SPACES: Multilevel degenerative spondylosis of the lumbar and lower thoracic spine. Changes include varying degrees of disc space narrowing, endplate eburnation and anterolateral osteophyte formation. Small posterior osteophyte formation present. Facets are hypertrophic L5-S1 through the L2-L3 levels decreasing order of severity. OTHER FINDINGS: None. IMPRESSION: No definitive radiographic evidence of acute fracture seen. Multilevel degenerative spondylosis with scoliotic deformity unchanged from prior study. - CT Scan/US CT Head Other Rad Studies (CT/US): Read By Radiologist, Radiology Report Reviewed CT/US Interpretation: Date of service: 02/11/2019. PROCEDURE: CT HEAD WITHOUT CONTRAST. HISTORY: Posttraumatic head injury. COMPARISON: None available. TECHNIQUE: Axial computed tomography images were obtained through the head/brain without intravenous contrast. Supplemental Coronal and Sagittal pr ojections created and reviewed. Radiation dose: Total exam DLP = 764.30 mGy- cm. This CT exam was performed using one or more of the following dose reduction techniques: Automated exposure control, adjustment of the mA and/or kV according to patient size, and/or use of iterative reconstruction technique. FINDINGS: HEMORRHAGE: No intracranial hemorrhage. BRAIN: No mass effect or edema. No atrophy or chronic microvascular ischemic changes. VENTRICLES: Unremarkable. No hydrocephalus. CALVARIUM: Unremarkable. PARANASAL SINUSES: Unremarkable as visualized. No significant inflammatory changes. MASTOID AIR CELLS: Unremarkable as visualized. No inflammatory changes. OTHER FINDINGS: None. IMPRESSION: No acute intracranial abnormalities. No significant findings to account for the clinical presentation. CT C-Spine Other Rad Studies (CT/US): Read By Radiologist, Radiology Report Reviewed CT/US Interpretation: Date of service: 02/11/2019. PROCEDURE: CT Cervical Spine without contrast. HISTORY: s/p fall posttraumatic low back pain. COMPARISON: None available. TECHNIQUE: Axial computed tomography images were obtained of the cervical spine without the use of intravenous contrast. Coronal and sagittal reformatted images were created and reviewed. Radiation dose: Total exam DLP = 249.85 mGy-cm. This CT exam was performed using one or more of the following dose reduction techniques: Automated exposure control, adjustment of the mA and/or kV according to patient size, and/or use of iterative reconstruction technique. FINDINGS: VERTEBRAE: No fracture. Normal alignment. No destructive bony lesion. DISCS/SPINAL CANAL/NEURAL FORAMINA: No significant central canal or neural foraminal stenosis. Discs heights are grossly preserved. PARASPINAL SOFT TISSUES: Unremarkable. OTHER FINDINGS: None. IMPRESSION: Unremarkable CT of the cervical spine. Medical Decision Making Medical Decision Making: Plan: CT C-Spine, CT Head, and XR LS Spine ordered and reviewed Lidoderm patch and Tylenol PO given- patient noted improvement Discussed results with patient and daughter advised to follow up with PMD patient is stable for discharge Disposition Counseled Patient/Family Regarding: Studies Performed, Diagnosis, Need For F ollowup, Rx Given - Disposition Referrals: George Castillo III, MD [Staff Provider] - Shaik Pollard MD [Staff Provider] - Disposition: HOME/ ROUTINE Disposition Time: 14:01 Condition: STABLE Additional Instructions: Continue meds as prescribed Rest and Ice the area Follow up with PMD if symptoms persist Return to ED if symptoms worsen Prescriptions: Lidocaine 5% [Lidoderm] 1 ea TD DAILY PRN #30 patch PRN Reason: Pain, Moderate (4-7) Naproxen [Naprosyn] 500 mg PO BID #30 tablet Walker [Rolling Walker] 1 dev XX DAILY #1 dev Instructions: Low Back Pain (DC), Minor Head Injury (DC) Forms: [employer] (Togolese) - Clinical Impression Clinical Impression: Minor head injury, Low back pain, Spondylosis - PA / [employer]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 - Scribe Statement The provider has reviewed the documentation as recorded by the Scribe (Anshul Villasenor) All medical record entries made by the Scribe were at my direction and personally dictated by me. I have reviewed the chart and agree that the record accurately reflects my personal performance of the history, physical exam, medical decision making, and the department course for this patient. I have also personally directed, reviewed, and agree with the discharge instructions and disposition.
--- NOTE | 2019-02-11 12:50 | CT ---
Date of service: 02/11/2019 PROCEDURE: CT HEAD WITHOUT CONTRAST. HISTORY: Posttraumatic head injury. COMPARISON: None available. TECHNIQUE: Axial computed tomography images were obtained through the head/brain without intravenous contrast. Supplemental Coronal and Sagittal projections created and reviewed. Radiation dose: Total exam DLP = 764.30 mGy-cm. This CT exam was performed using one or more of the following dose reduction techniques: Automated exposure control, adjustment of the mA and/or kV according to patient size, and/or use of iterative reconstruction technique. FINDINGS: HEMORRHAGE: No intracranial hemorrhage. BRAIN: No mass effect or edema. No atrophy or chronic microvascular ischemic changes. VENTRICLES: Unremarkable. No hydrocephalus. CALVARIUM: Unremarkable. PARANASAL SINUSES: Unremarkable as visualized. No significant inflammatory changes. MASTOID AIR CELLS: Unremarkable as visualized. No inflammatory changes. OTHER FINDINGS: None. IMPRESSION: No acute intracranial abnormalities. No significant findings to account for the clinical presentation.
--- NOTE | 2019-02-11 12:52 | CT ---
Date of service: 02/11/2019 PROCEDURE: CT Cervical Spine without contrast HISTORY: s/p fall posttraumatic low back pain COMPARISON: None available. TECHNIQUE: Axial computed tomography images were obtained of the cervical spine without the use of intravenous contrast. Coronal and sagittal reformatted images were created and reviewed. Radiation dose: Total exam DLP = 249.85 mGy-cm. This CT exam was performed using one or more of the following dose reduction techniques: Automated exposure control, adjustment of the mA and/or kV according to patient size, and/or use of iterative reconstruction technique. FINDINGS: VERTEBRAE: No fracture. Normal alignment. No destructive bony lesion. DISCS/SPINAL CANAL/NEURAL FORAMINA: No significant central canal or neural foraminal stenosis. Discs heights are grossly preserved. PARASPINAL SOFT TISSUES: Unremarkable. OTHER FINDINGS: None. IMPRESSION: Unremarkable CT of the cervical spine.
--- NOTE | 2019-02-11 13:32 | RAD ---
Date of service: 02/11/2019 PROCEDURE: Radiographs of the Lumbar Spine. HISTORY: Status post fall COMPARISON: Comparison made with prior CT scan of the abdomen and pelvis 12/04/2018 which image the lumbar spine in 3 planes. TECHNIQUE: 5 views obtained. FINDINGS: BONES: No acute compression fractures nor retropulsed fragments. There is a moderate scoliotic deformity convex right centered at the thoracolumbar junction. DISC SPACES: Multilevel degenerative spondylosis of the lumbar and lower thoracic spine. Changes include varying degrees of disc space narrowing, endplate eburnation and anterolateral osteophyte formation. Small posterior osteophyte formation present. Facets are hypertrophic L5-S1 through the L2-L3 levels decreasing order of severity. OTHER FINDINGS: None. IMPRESSION: No definitive radiographic evidence of acute fracture seen. Multilevel degenerative spondylosis with scoliotic deformity unchanged from prior study.
[2019-02-11] MEDS ORDERED: Lidocaine 5% Patch TD STA (13:39)
[2019-02-11] MEDS ORDERED: Lidocaine 5% Patch TD ONE (13:43)
[2019-02-11 14:07] VITALS: BP 116/73; PULSE 55; RESP 16; TEMP 97.5
== END 2019-02-11 14:12 | disposition home or self-care (01) ==
LOC: C.ER 11:21
DX: S09.90XA Unspecified injury of head, initial encounter (principal); W05.0XXA Fall from non-moving wheelchair, initial encounter; M47.9 Spondylosis, unspecified; M54.5 Low back pain